=== PATIENT | female | born 1955 | race Caucasian/White ===

== ENCOUNTER 2018-03-30 10:08 | Inpatient (IN) | payer BC ==
[2018-03-30] MEDS ORDERED: ONDANSETRON 4 MG/2 ML VIAL IVP PRN (13:06)
[2018-03-30] MEDS ORDERED: MELATONIN 3 MG TABLET PO PRN (13:06)
[2018-03-30] MEDS ORDERED: NALOXONE 0.4 MG/ML 1 ML VIAL IV PRN (13:06)
[2018-03-30] MEDS ORDERED: ALBUTEROL NEBULIZED 2.5 MG/3 ML INHALATION PRN (13:11)
[2018-03-30] MEDS ORDERED: LACTATED RINGERS 1,000 ML IV SCH (13:15)
[2018-03-30 14:10] LABS: Basophils % (A) 0 %; Eosinophils % (A) 0 %; HCT 36.9 % (34.0-46.0); HGB 12.3 gm/dL (11.4-16.0); Lymphocytes # (A) 0.8 k/uL (1.0-4.8); Lymphocytes % (A) 3 %; MCH 31.3 pg (25.0-35.0); MCHC 33.5 g/dL (31.0-37.0); MCV 93.4 fL (80.0-100.0); Mean Platelet Volume 9.2; Monocytes # (A) 0.6 k/uL (0-1.0); Monocytes % (A) 3 %; Neutrophils # (A) 20.6 k/uL (1.3-7.7); Neutrophils % (A) 93 %; RBC 3.95 m/uL (3.80-5.40); RDW 13.5 % (11.5-15.5); WBC 22.1 k/uL (3.8-10.6)
[2018-03-30] MEDS: ACETAMINOPHEN TAB 325 MG TAB PO PRN ×2 (14:16→21:24)
[2018-03-30] MEDS: cefTRIAXone IN SWFI 1,000 MG/10 ML SYRINGE IVP SCH (14:17)
[2018-03-30] MEDS: BACLOFEN 10 MG TAB PO SCH ×3 (14:17→21:24)
[2018-03-30] MEDS: ENOXAPARIN 40 MG/0.4 ML SYRINGE SQ SCH (14:17)
[2018-03-30 14:19] LABS: Albumin 2.6 g/dL (3.5-5.0); Calcium 7.9 mg/dL (8.4-10.2); Phosphorus 5.2 mg/dL (2.5-4.5); Potassium 3.9 mmol/L (3.5-5.1); Total Bilirubin 0.8 mg/dL (0.2-1.3); Total Protein 5.1 g/dL (6.3-8.2)
[2018-03-30 14:30] LABS: Appearance,Urine Clear (Clear); Bacteria,Urine Rare /hpf; Bilirubin,Urine Negative (Negative); Blood,Urine Small (Negative); Color,Urine Light Yellow; Glucose,Urine (UA) Negative (Negative); Hyaline Casts,Urine 1 /lpf (0-2); Ketones,Urine Negative (Negative); Leukocyte Esterase,Urine Large (Negative); Mucus,Urine Rare /hpf; Nitrite,Urine Negative (Negative); Protein,Urine 1+ (Negative); RBC,Urine 10 /hpf (0-5); Specific Gravity,Urine 1.006 (1.001-1.035); Urobilinogen,Urine <2.0 mg/dL (<2.0); WBC,Urine 107 /hpf (0-5)
[2018-03-30 14:51] LABS: Platelet Count 79 k/uL (150-450); Poikilocytosis (M) Present; Polychromasia Present
[2018-03-30] MEDS ORDERED: SODIUM CHLORIDE 0.9% 1,000 ML IV SCH (17:15)
--- NOTE | 2018-03-30 19:10 | CONS ---
CONSULTATION REASON FOR CONSULT: Renal failure, hyponatremia. HISTORY OF PRESENT ILLNESS: Patient is a 62-year-old female with no significant past medical history except for back pain and hypertension, which patient has had for about 4 years. Her blood pressure has been fairly well controlled as outpatient. Patient had complained of urinary symptoms for about one week prior to admission. She thought she had a urinary tract infection and did increase her fluid intake. There is no previous history of hyponatremia or renal failure. A previous creatinine was noted to be 0.7 mg/dL on labs done as outpatient. Patient initially presented to [facility] with increased weakness. She was found to have a UA suggestive of urinary tract infection and serum creatinine was 4.4 mg/dL, sodium of 123. The patient was started on saline and she was transferred to [facility]. There is history of use of Motrin 800 mg t.i.d. almost on a daily basis for a few years now. Patient's blood pressure is also on the lower side. No history of recent IV contrast administration. PAST MEDICAL HISTORY: 1. Hypertension. 2. Chronic back pain. 3. Degenerative joint disease, particularly of the spine, maintained on baclofen. 4. Hypertension. PAST SURGICAL HISTORY: Back surgery. SOCIAL HISTORY: Negative for smoking, drug abuse or alcohol abuse. HOME MEDICATIONS: 1. Calcium. 2. Hyzaar. 3. Vitamin B complex. 4. Vitamin E. 5. Biotene. 6. Motrin. 7. Tylenol. 8. Albuterol. 9. Baclofen. ALLERGIES: NO KNOWN DRUG ALLERGIES. PHYSICAL EXAMINATION: Patient is sleepy but easily arousable. Blood pressure was 111/71, heart rate 90 per minute. She is afebrile. EXAMINATION OF THE HEART: S1, S2. EXAMINATION OF LUNGS: Bilateral breath sounds are heard. ABDOMEN: Soft, non-tender. Examination of lower extremities shows no evidence of edema. INTEGRATED MARKETING SPECIALIST exam is grossly intact. Patient is moving all 4 extremities. She is a bit sleepy, but easily arousable. LABS: Sodium 127, potassium 3.9, chloride 97. CO2 is 13, BUN 104, serum creatinine 4.3, calcium 7.9, phosphorus 5.2. Albumin is 2.6, hemoglobin 12.3 g/dL. UA shows 1+ protein, large leukocyte esterase, WBC 107. Urine osmolality was 254. ASSESSMENT: 1. Acute kidney injury secondary to non-steroidal anti-inflammatories and hypoperfusion as well as urinary tract infection. Serum creatinine has not changed much since yesterday with IV fluids, although patient is non-oliguric. We will continue with IV hydration and repeat labs in a.m. I will check an ultrasound of the kidneys as well. We will definitely hold off on the NSAIDs and the EDU inhibitors. Previous creatinine, as mentioned, was 0.7 mg/dL. 2. Hyponatremia, most likely hypovolemic, improved from 123 to 127. The patient did receive IV fluids at [facility]. We will continue with normal saline and repeat labs in a.m. Urine osmolality is not high. 3. Metabolic acidosis secondary to renal failure, anion gap. Will start patient on IV bicarb. I will switch the IV fluids from normal saline to half-normal saline with 3 amps of sodium bicarb. 4. Mild hyperphosphatemia associated with renal failure. 5. Urinary tract infection. We will maintain patient on Rocephin. PLAN: Switch IV fluids to IV bicarb. We will increase the sodium in the IV fluids and add 3 amps of sodium bicarb to half-normal saline. Check ultrasound of the kidneys. Continue antibiotics. Follow up on urine cultures and continue to hold off on NSAIDs and EDU inhibitors for now. Thank you for this consultation. We will continue to follow the patient with you during her hospitalization. MMODL / IJN: [id number] /
--- NOTE | 2018-03-30 19:43 | HP ---
HISTORY AND PHYSICAL DATE OF ADMISSION: 03/30/2018 PRESENTING COMPLAINT: Lethargic. HISTORY OF PRESENTING COMPLAINT: This is a very pleasant 62-year-old patient of Dr. Lara. Patient is the of Dr. Steve Grimaldo, a [facility]. Patient's chronic stable medical conditions include chronic back pain with prior surgery, hypertension and muscle spasms. For over a week the patient started having urinary symptoms with burning, and slowly then patient started losing her appetite, started to become weak and tired with decreased oral intake to the point that patient passed out 2 days ago after coming back from the bathroom. Patient was taken to [facility] yesterday, and there patient's BUN was found to be 93. Creatinine was 4.4. White count was 22.6 and sodium 123. Patient's CT scan of the brain was unremarkable and 2-D showed preserved LV function. Patient was transferred down here for further management. Patient continues to feel weak and tired, rundown. Currently no fever. REVIEW OF SYSTEMS: CONSTITUTIONAL: Weak, tired, rundown. Decreased appetite. HEENT: None. RESPIRATORY: None. CARDIOVASCULAR: None. GASTROINTESTINAL: None. GENITOURINARY: Dysuria. DERMATOLOGICAL: None. HEMATOLOGICAL: None. LYMPHATICS: None. PSYCHIATRY: As above. NEUROLOGICAL: No focal weakness. MUSCULOSKELETAL: Chronic neck and back pain. PAST MEDICAL HISTORY: 1. GI bleed. 2. Hypertension. 3. Osteoarthritis. 4. Chronic cervical and back pain. 5. Lower GI bleed. PAST SURGICAL HISTORY: 1. Breast surgery. 2. . 3. Tonsillectomy. 4. Bilateral breast implants. 5. Cervical and thoracic spinal surgery. 6. x2. SOCIAL HISTORY: No smoking. Alcohol rarely. Lives with her . FAMILY HISTORY: Father had mesothelioma. HOME MEDICATIONS: 1. Biotin 300 mcg a day. 2. Vitamin E 100 units p.o. daily. 3. Vitamin B complex 1 capsule p.o. daily. 4. Hyzaar 50/12.5 one tablet p.o. daily. 5. Calcium 600 mg p.o. daily. 6. Motrin 800 mg p.o. t.i.d. p.r.n. 7. Baclofen 20 mg p.o. t.i.d. 8. Tylenol 650 mg q.6 p.r.n. 9. ProAir 2 puffs q.6 p.r.n. ALLERGIES: NONE. PHYSICAL EXAMINATION: VITAL SIGNS ON PRESENTATION: Temperature 98.2, pulse 93, respiration 16, blood pressure 132/84, pulse ox 97% on room air. GENERAL APPEARANCE: Average build. Lying in bed, tired-appearing. EYES: Pupils equal. Conjunctivae normal. HEENT: External appearance of nose and ears normal. Oral cavity dry. NECK: JVD not raised. Mass not palpable. RESPIRATORY: Effort normal. LUNGS: Fair air entry. CARDIOVASCULAR: First and second sounds normal. No edema. ABDOMEN: Soft, nontender. Liver and spleen not palpable. LYMPHATIC: No lymph node palpable in neck or axillae. PSYCHIATRY: Alert and oriented x3. Tired-appearing. NEUROLOGICAL: Pupils equal. Cranial nerves grossly intact. Power and sensation grossly intact. INVESTIGATIONS: Blood work from [facility] showed BUN of 93, creatinine 4.4, sodium 123, potassium 3.3, white count 22.6, hemoglobin 11.2, platelets 103. Labs done here show white count 22.1, hemoglobin 12.3, platelets 79, sodium 127, potassium 3.9, BUN 104, creatinine 4.3, phosphorus 5.2, serum albumin 2.6. UA positive for leukocyte esterase, WBC. ASSESSMENT: 1. Acute severe urinary tract infection with possible sepsis. 2. Acute renal failure, severe, probably a combination of acute tubular necrosis, prerenal, given that patient is taking Hyzaar and Motrin at home and also decreased oral intake. 3. Acute metabolic acidosis from renal failure. 4. Hyponatremia, likely hypo-osmolar from decreased salt intake. 5. Hypoalbuminemia as an acute phase reactant. 6. Chronic osteoarthritis of the cervical spine and thoracic spine. PLAN: The patient will be given IV fluids. Renal function will be followed closely. Consultation to Nephrology was made. Strict and I&O will be done. Patient was started on IV fluids at 125 mL/hour. Will add some sodium bicarb. Patient's renal function labs from Dr. Lara's office from 2 weeks ago showed the BUN and creatinine to be normal. Patient was put on IV ceftriaxone. Dose of baclofen has been cut back to 10 mg 3 times a day and a K-pad will be given for back pain. Prognosis guarded. Did talk to the patient and especially her at length. MMODL / IJN: [id number] /
--- NOTE | 2018-03-30 21:15 | US ---
EXAMINATION TYPE: US renals and bladder DATE OF EXAM: 03/30/2018 COMPARISON: NONE CLINICAL HISTORY: renal failure. Renal failure EXAM MEASUREMENTS: Right Kidney: 10.0 x 6.1 x 6.0 cm Left Kidney: 13.4 x 6.1 x 6.2 cm Right Kidney: No hydronephrosis or masses seen Left Kidney: No hydronephrosis or masses seen Bladder: Anechoic Bilateral Jets seen: Yes There is no evidence for hydronephrosis at this point in time. No nephrolithiasis is seen. No yadiel s are identified. The urinary bladder is anechoic. Bilateral ureteral jets are seen. IMPRESSION: No evidence of renal mass or obstruction. The kidneys are large in this patient with a history of re nal failure. This could relate to acute nephritis.
[2018-03-30] MEDS: SODIUM CHLORIDE 0.45% 1,000 ML with SODIUM BICARB (1 MEQ/ML) 150 ML IV SCH ×2 (21:27)
[2018-03-31 07:45] LABS: Basophils % (A) 0 %; Eosinophils # (A) 0.1 k/uL (0-0.7); Eosinophils % (A) 0 %; HCT 35.8 % (34.0-46.0); HGB 11.9 gm/dL (11.4-16.0); Lymphocytes # (A) 1.2 k/uL (1.0-4.8); Lymphocytes % (A) 6 %; MCH 30.2 pg (25.0-35.0); MCHC 33.4 g/dL (31.0-37.0); MCV 90.4 fL (80.0-100.0); Mean Platelet Volume 9.3; Monocytes # (A) 0.4 k/uL (0-1.0); Monocytes % (A) 2 %; Neutrophils # (A) 19.6 k/uL (1.3-7.7); Neutrophils % (A) 91 %; RBC 3.96 m/uL (3.80-5.40); RDW 13.4 % (11.5-15.5); WBC 21.6 k/uL (3.8-10.6)
[2018-03-31 07:47] LABS: Platelet Count 71 k/uL (150-450)
[2018-03-31 07:53] LABS: Albumin 2.5 g/dL (3.5-5.0); Calcium 8.2 mg/dL (8.4-10.2); Potassium 3.3 mmol/L (3.5-5.1); Total Bilirubin 0.9 mg/dL (0.2-1.3); Total Protein 4.9 g/dL (6.3-8.2)
[2018-03-31] MEDS: ENOXAPARIN 40 MG/0.4 ML SYRINGE SQ SCH (08:47)
[2018-03-31] MEDS: cefTRIAXone IN SWFI 1,000 MG/10 ML SYRINGE IVP SCH (08:47)
[2018-03-31] MEDS: BACLOFEN 10 MG TAB PO SCH ×3 (08:48→21:17)
[2018-03-31] MEDS ORDERED: POTASSIUM CHLORIDE ER 20 MEQ TAB.ER PO STA (12:36)
[2018-03-31] MEDS: SODIUM CHLORIDE 0.45% 1,000 ML with SODIUM BICARB (1 MEQ/ML) 150 ML IV SCH ×2 (12:37)
[2018-03-31] MEDS: ACETAMINOPHEN TAB 325 MG TAB PO PRN ×2 (13:26→20:25)
--- NOTE | 2018-03-31 13:41 | PN ---
PROGRESS NOTE The patient is seen for followup for acute kidney injury, severe metabolic acidosis and hyponatremia. She was admitted with urinary tract infection. Overall, she states she is feeling slightly better, although according to her she was better last night as compared to this morning. The patient does not have much appetite, however, she denies any nausea, vomiting or abdominal pain. PHYSICAL EXAMINATION: On examination, blood pressure is 118/78, heart rate 80 per minute. She is afebrile. EXAMINATION OF THE HEART: S1, S2. EXAMINATION OF THE LUNGS: Decreased breath sounds at the bases. Minimal basal crackles are heard. Abdomen is soft, nontender. Examination of the lower extremities shows no significant edema. REAL ESTATE OFFICE SUPERVISOR exam shows patient is moving all 4 extremities. LABS: Sodium 127, potassium 3.3, CO2 is 18, BUN 110, serum creatinine 4.5. Albumin 2.5. Calcium 8.2. Hemoglobin was 11.9 g/dL. ASSESSMENT: 1. Acute kidney injury secondary to NSAID, urinary tract infection and hypovolemia, currently maintained on IV fluids which I will continue. There are no nephrotoxic agents on board. The patient has good urine output. We will continue to monitor her output as well. If her mentation declines or if the renal function worsens, she may need temporary hemodialysis. This was discussed with her . However, at this time, I feel we do not need any renal replacement therapy. 2. Hypokalemia secondary to IV bicarb, will replace. 3. Metabolic acidosis, anion gap secondary to renal failure, maintained on IV bicarb, which I will continue and add oral sodium bicarbonate. 4. Hyponatremia secondary to renal failure, initially hypovolemic as well. Currently being replaced with IV fluids, which is slightly and I will continue with the current combination of half-normal saline with 150 mEq of sodium bicarb. 5. Urinary tract infection. Urine culture is not back yet. The patient had already received antibiotics when her culture was amadou. We will continue with the Rocephin for now. 6. Mild hyperphosphatemia associated with renal failure. PLAN: Replace potassium. Continue with IV bicarb. Add oral sodium bicarb. Repeat labs in a.m. Check chest x-ray. Possibility for need for renal replacement therapy has been discussed with the patient and her . At this time, I do not believe the patient needs any dialysis. We will continue to reassess on a daily basis. MMODL / IJN: [id number] /
[2018-03-31] MEDS: SODIUM BICARBONATE TAB 650 MG TAB PO SCH ×2 (14:38→21:17)
--- NOTE | 2018-03-31 15:42 | XR ---
EXAMINATION TYPE: XR chest 1V DATE OF EXAM: 03/31/2018 COMPARISON: NONE INDICATION: CHF TECHNIQUE: Single frontal view of the chest is obtained. FINDINGS: The heart size is normal. The pulmonary vasculature is normal. Small amount of pleural fluid may be present at the left costophrenic angle. There is blunting left c ostophrenic angle. No suspicious infiltrates are evident. Bilateral breast prostheses are evident. Postsurgical changes are within the cervical spine. IMPRESSION: 1. Small left pleural effusion and/or atelectasis.
--- NOTE | 2018-03-31 16:05 | PN ---
PROGRESS NOTE DATE OF SERVICE: 03/31/2018 PRESENTING COMPLAINT: Tired. INTERVAL HISTORY: This patient presented with acute renal failure, acute UTI, tired. Patient has got chronic back pain. Making some urine. Has got some oral intake. Dr. Grimaldo at the bedside. REVIEW OF SYSTEMS: Done for constitutional, cardiovascular, GI, pulmonary, musculoskeletal; relevant findings as above. CURRENT MEDICATIONS: Reviewed. They include: 1. Baclofen 10 mg 3 times a day. 2. IV ceftriaxone. 3. IV fluids. 4. Bicarbonate. PHYSICAL EXAMINATION: Temperature 97.6, pulse 80, respiration 18, blood pressure 118/78, pulse ox 95% on room air. GENERAL APPEARANCE: Sitting up in bed, awake, tired-appearing. EYES: Pupils equal. Conjunctivae normal. HEENT: External appearance of nose and ears normal. Oral cavity normal. NECK: JVD not raised. Mass not palpable. RESPIRATORY: Effort normal. Lungs are clear. CARDIOVASCULAR: First and second sounds normal. Mild edema. ABDOMEN: Soft, nontender. Liver and spleen not palpable. PSYCHIATRY: Awake. Able to answer simple questions. INVESTIGATIONS: White count 21.6, hemoglobin 11.9, platelets 71. Potassium 3.3, sodium 127, bicarb 14, BUN 110, creatinine 4.5, calcium 8.2, albumin 2.5. Urine culture pending. ASSESSMENT: 1. Acute severe urinary tract infection with possible sepsis, present on admission. Cultures are pending. 2. Acute renal failure, severe, probably a combination of acute tubular necrosis and prerenal. Patient had been on Hyzaar and Motrin. Slow to respond. 3. Acute metabolic acidosis from renal failure. 4. Hyponatremia, likely hypo-osmolar, from decreased salt intake. 5. Hypoalbuminemia as an acute phase reactant. 6. Chronic osteoarthritis of the cervical spine and thoracic spine. PLAN: Patient is slow to respond. Do expect her to respond. Patient's renal functions 2 weeks ago were normal. Care was discussed with her at the bedside. I spoke to Dr. Mason. If patient does not fare too well, then hemodialysis may be the next step. Continue with antibiotics, IV fluids, bicarbonate. Follow closely. MMODL / IJN: [id number] /
[2018-04-01] MEDS: SODIUM CHLORIDE 0.45% 1,000 ML with SODIUM BICARB (1 MEQ/ML) 150 ML IV SCH ×4 (05:37→21:51)
[2018-04-01] MEDS: cefTRIAXone IN SWFI 1,000 MG/10 ML SYRINGE IVP SCH (08:06)
[2018-04-01] MEDS: BACLOFEN 10 MG TAB PO SCH ×3 (08:09→21:40)
[2018-04-01] MEDS: SODIUM BICARBONATE TAB 650 MG TAB PO SCH ×2 (08:09→21:40)
[2018-04-01] MEDS: ACETAMINOPHEN TAB 325 MG TAB PO PRN (08:18)
[2018-04-01] MEDS: ENOXAPARIN 30 MG/0.3 ML SYRINGE SQ SCH (10:12)
--- NOTE | 2018-04-01 11:57 | PN ---
PROGRESS NOTE Patient is seen for followup for acute kidney injury. This morning she states she was confused and hallucinating last night. Patient remains on IV fluids. I do not have any labs from this morning. PHYSICAL EXAMINATION: Blood pressure is 117/73, heart rate 77 per minute. Last night examination of the heart S1, S2. Examination of the lungs, bilateral breath sounds are heard. Abdomen is soft, nontender. Examination of the lower extremities shows trace edema bilaterally. MULTIFOCAL BUTTON GENERATOR exam is grossly intact. Patient moving all 4 extremities. She is currently not confused. Labs are pending. ASSESSMENT: 1. Acute kidney injury secondary, secondary to NSAIDs and urinary tract infection, currently nonoliguric. Maintained on IV fluids. Patient does have some confusion and hallucinations. If her renal function is not improved today, I will proceed with renal replacement therapy. 2. Urinary tract infection, maintained on Rocephin. Urine culture did not grow any organisms. However, patient had already been on antibiotics before this urine specimen collection. 3. Metabolic acidosis. Maintained on IV bicarb. Etiology is renal failure. 4. Hypokalemia secondary to IV bicarb, decreased intake, currently status post supplementation from yesterday. Labs are pending today. 5. Hyponatremia, most likely hypovolemic and secondary to renal failure. Await repeat labs from today. PLAN: Check labs. Continue IV fluids. If renal function is not significantly improved, I will proceed with dialysis given the hallucination and confusion. Check a random urine for eosinophils as well. MMODL / IJN: [id number] /
[2018-04-01 12:12] LABS: Potassium 3.3 mmol/L (3.5-5.1)
[2018-04-01] MEDS ORDERED: FUROSEMIDE 10 MG/ML 4 ML VIAL IV STA (13:03)
[2018-04-01] MEDS ORDERED: POTASSIUM CHLORIDE ER 20 MEQ TAB.ER PO STA (13:03)
--- NOTE | 2018-04-01 22:21 | PN ---
PROGRESS NOTE DATE OF SERVICE: April 01, 2018. PRESENT COMPLAINT: Tired. INTERVAL HISTORY: Patient presents with acute renal failure and UTI. Cultures from [facility] have come back showing E coli in the urine. The patient feels a bit better. A little bit puffy from the fluids. Tolerating some diet. REVIEW OF SYSTEMS: Done for constitutional, cardiovascular, GI, pulmonary, musculoskeletal; relevant findings as above. CURRENT MEDICATIONS: Reviewed that include IV ceftriaxone, sodium bicarb, normal saline. PHYSICAL EXAMINATION: Temperature 97.5. Pulse 77, respiratory 18, blood pressure 140/81, pulse ox 96% on room air. GENERAL APPEARANCE: Sitting up in bed, awake, more perky. EYES: Pupils are equal. Conjunctivae normal. HEENT external appearance of nose and ears normal. Oral cavity normal. Neck JVD not raised. Mass not palpable. Respiratory effort, LUNGS: Clear. Cardiovascular 1st and 2nd sounds normal. Mild edema. ABDOMEN: Soft and nontender. Liver and spleen not palpable. Psychiatry: Alert, oriented x3. Mood and affect normal. INVESTIGATIONS: Sodium 124, potassium 3.3, BUN 110, creatinine 4.02. Urine culture from Agency is growing E coli. ASSESSMENT: 1. Acute severe urinary tract infection, possible sepsis on admission with cultures growing E coli from [facility]. 2. Acute renal failure, combination of acute tubular necrosis and prerenal, slow to respond. 3. Acute metabolic acidosis from renal failure. 4. Hyponatremia, likely hypoosmolar. 5. Hypoalbuminemia as an acute phase reactant. 6. Chronic osteoarthritis of the cervical spine and thoracic spine. 7. Thrombocytopenia, likely from infection. 8. Metabolic acidosis from renal failure slowly improving. PLAN: Continue current medication and treatment plan. Will add some salt tablets. Switch the patient over to Keflex for antibiotic. Follow. MMODL / IJN: [id number] /
[2018-04-01] MEDS: SODIUM CHLORIDE TAB 1 GM TAB PO SCH (23:33)
[2018-04-02 06:51] LABS: Albumin 2.6 g/dL (3.5-5.0); Calcium 8.3 mg/dL (8.4-10.2); Potassium 3.7 mmol/L (3.5-5.1)
[2018-04-02 07:13] LABS: Basophils % (A) 0 %; Eosinophils # (A) 0.1 k/uL (0-0.7); Eosinophils % (A) 0 %; HCT 33.2 % (34.0-46.0); HGB 11.4 gm/dL (11.4-16.0); Lymphocytes # (A) 1.1 k/uL (1.0-4.8); Lymphocytes % (A) 5 %; MCHC 34.2 g/dL (31.0-37.0); MCV 87.8 fL (80.0-100.0); Mean Platelet Volume 8.8; Monocytes # (A) 0.7 k/uL (0-1.0); Monocytes % (A) 4 %; Neutrophils # (A) 18.2 k/uL (1.3-7.7); Neutrophils % (A) 89 %; RBC 3.78 m/uL (3.80-5.40); RDW 13.3 % (11.5-15.5); WBC 20.4 k/uL (3.8-10.6)
[2018-04-02 07:15] LABS: Platelet Count 150 k/uL (150-450)
[2018-04-02] MEDS: BACLOFEN 10 MG TAB PO SCH ×3 (07:35→21:05)
[2018-04-02] MEDS: ENOXAPARIN 30 MG/0.3 ML SYRINGE SQ SCH (07:35)
[2018-04-02] MEDS: SODIUM BICARBONATE TAB 650 MG TAB PO SCH ×2 (07:36→21:04)
[2018-04-02] MEDS: SODIUM CHLORIDE TAB 1 GM TAB PO SCH ×3 (07:36→21:04)
[2018-04-02] MEDS: ACETAMINOPHEN TAB 325 MG TAB PO PRN ×2 (07:39→19:18)
[2018-04-02] MEDS ORDERED: CEPHALEXIN 500 MG CAP PO SCH (09:00)
[2018-04-02] MEDS: ALPRAZolam 0.25 MG TAB PO PRN ×3 (11:17→23:26)
[2018-04-02] MEDS ORDERED: FUROSEMIDE 10 MG/ML 4 ML VIAL IV STA (11:58)
--- NOTE | 2018-04-02 11:59 | P.PN ---
Subjective Patient is seen in follow for acute kidney injury. Creatinine peaked at 4.5 on March 31 and has been gradually improving and is down to 3.57 today. Sodium level is also up to 127. Patient's currently sitting up in chair. Oral intake is fair. She has been waiting. Admits to edema in her legs. She has gained quite a bit overweight. No vomiting or diarrhea. Vital signs are stable. General: The patient appeared well nourished and normally developed. HEENT: Head exam is unremarkable. Neck is without jugular venous distension. LUNGS: Lungs are clear to auscultation and percussion. Breath sounds decreased. HEART: Rate and Rhythm are regular. First and second heart sounds normal. No murmurs, rubs or gallops. ABDOMEN: Abdominal exam reveals normal bowel sounds. Non-tender and non- distended. No evidence of peritonitis. EXTREMITITES: 1+ edema. Objective - Vital Signs Vital signs: Vital Signs Temp 98.7 F 04/02/18 03:54 Pulse 83 04/02/18 08:00 Resp 18 04/02/18 08:00 BP 151/86 04/02/18 03:54 Pulse Ox 98 04/02/18 03:54 Intake & Output 04/01/18 04/02/18 04/02/18 18:59 06:59 18:59 Intake Total 600 Output Total 1150 2500 Balance -550 -2500 Weight 58.5 kg 65 kg 65 kg Intake: IV 600 Sodium Chloride 0.45% 1, 600 000 ml @ 75 mls/hr IV . [id number] REVA with Sodium Bicarb (1 Meq/ml) 150 ml Rx#:[id number] Output: Urine 1150 2500 Other: Voiding Method Toilet Toilet Toilet # Voids 1 - Labs CBC & Chem 7: 04/02/18 06:26 04/02/18 06:26 Labs: Abnormal Lab Results - Last 24 Hours (Table) 04/01/18 04/02/18 04/02/18 Range/Units 11:49 06:26 06:26 WBC 20.4 H (3.8-10.6) k/uL RBC 3.78 L (3.80-5.40) m/uL Hct 33.2 L (34.0-46.0) % Neutrophils # 18.2 H (1.3-7.7) k/uL Sodium 124 L 127 L (137-145) mmol/L Potassium 3.3 L (3.5-5.1) mmol/L Chloride 88 L 87 L (98-107) mmol/L Carbon Dioxide 21 L (22-30) mmol/L BUN 110 H* 106 H* (7-17) mg/dL Creatinine 4.02 H 3.57 H (0.52-1.04) mg/dL Glucose 109 H 102 H (74-99) mg/dL Calcium 8.0 L 8.3 L (8.4-10.2) mg/dL AST 47 H (14-36) U/L ALT 54 H (9-52) U/L Alkaline Phosphatase 201 H (38-126) U/L Total Protein 5.0 L (6.3-8.2) g/dL Albumin 2.6 L (3.5-5.0) g/dL Assessment and Plan Plan: Assessment: 1. Nonoliguric acute kidney injury secondary to ATN secondary to nonsteroidals and urinary tract infection. Creatinine peaked at 4.5 this admission and is down to 3.57 today. 2. UTI maintained on IV antibiotics. 3. Metabolic acidosis secondary to acute kidney injury. Currently on bicarb drip. Resolved. 4. Hypokalemia secondary to transcellular shift from IV bicarbonate and decreased by mouth intake. Improved posterior placement. 5. Hypovolemic hyponatremia improved with IV hydration. However now the patient appears hypervolemic. Plan: Discontinue bicarbonate drip. Start normal saline at 50 mL an hour for maintenance fluids for now. Lasix 40 mg IV once today. Encouraged oral intake. Repeat electrolytes in the morning. No need for renal replacement therapy at this time.
[2018-04-02] MEDS: SODIUM CHLORIDE 0.45% 1,000 ML with SODIUM BICARB (1 MEQ/ML) 150 ML IV SCH ×2 (12:12)
[2018-04-02] MEDS: SODIUM CHLORIDE 0.9% 1,000 ML IV SCH (12:15)
[2018-04-02] MEDS: CEPHALEXIN 250 MG CAP PO SCH ×2 (17:31→21:05)
--- NOTE | 2018-04-02 22:04 | PN ---
PROGRESS NOTE DATE OF SERVICE: April 02, 2018. PRESENTING COMPLAINT: Tired. INTERVAL HISTORY: Patient presents with acute renal failure, UTI from E coli. The patient has got some edema. The patient did walk up to the lounge. Oral intake is still a bit low. Breathing is stable. REVIEW OF SYSTEMS: Done for constitutional, cardiovascular, GI, pulmonary; relevant findings as above. CURRENT MEDICATIONS: Reviewed and include baclofen, oral Keflex, bicarb has been switched to p.o. Insulin has been dropped. Saline has been dropped down to a to 50 mL an hour. PHYSICAL EXAMINATION: Temperature 97.9, pulse 75, respiratory 18, blood pressure 110/74, pulse ox 97% on room air. General appearance: Sitting up in a chair, awake tired-appearing. Eyes pupils are equal. Conjunctivae normal. HEENT external appearance of nose and ears normal. Oral cavity normal. Neck JVD not raised. Mass not palpable. Respiratory effort normal. Lungs fair entry. Cardiovascular 1st and 2nd sounds normal. Edema present. ABDOMEN: Soft nontender. Liver and spleen not palpable. Psychiatry: Alert and oriented times three. Mood and affect normal. INVESTIGATIONS: White count 20.4, hemoglobin 11.4, sodium 127, potassium 3.7, chloride 87, BUN 106, creatinine 3.57, calcium 8.3, albumin 2.6, serum osmolality is 300. ASSESSMENT: 1. Acute severe urinary tract infection with sepsis present on admission with cultures growing E coli. 2. Nonoliguric acute renal failure, severe, combination of acute tubular necrosis, possibly prerenal, slow to respond. 3. Acute metabolic acidosis from renal failure improving. 4. Hyponatremia initially hypoosmolar now patient is normal osmolar. 5. Hypoalbuminemia as an acute phase reactant. 6. Chronic osteoarthritis of the cervical spine and thoracic spine. 7. Thrombocytopenia likely from infection, now improved. 8. Metabolic acidosis from renal failure improving. PLAN: Patient's IV fluids have been decreased to 50, bicarb is switched to p.o. Osmolality is coming back at normal. Will DC the sodium tablets. In the morning we will check patient's sodium, the urine sodium, urine chloride, and also do a blood gases to assess more closely the acid-base status of the patient and manage fluids accordingly. If the patient third-spacing and that could be a contribution from a significant hypoalbuminemia. MMODL / IJN: [id number] /
[2018-04-03 06:33] LABS: Calcium 8.3 mg/dL (8.4-10.2); Magnesium 1.7 mg/dL (1.6-2.3); Potassium 3.3 mmol/L (3.5-5.1)
[2018-04-03] MEDS: ALPRAZolam 0.25 MG TAB PO PRN ×3 (07:12→22:08)
[2018-04-03 07:52] LABS: ABG HCO3 31 mmol/L (21-25); ABG PCO2 41 mmHg (35-45); ABG PH 7.48 (7.35-7.45); ABG PO2 68 mmHg (83-108); ABG TCO2 32 mmol/L (19-24)
[2018-04-03 07:53] LABS: ABG Base Excess 7.4 mmol/L
[2018-04-03] MEDS: SODIUM BICARBONATE TAB 650 MG TAB PO SCH (08:12)
[2018-04-03] MEDS: BACLOFEN 10 MG TAB PO SCH ×3 (08:12→22:04)
[2018-04-03] MEDS: ENOXAPARIN 30 MG/0.3 ML SYRINGE SQ SCH (08:12)
[2018-04-03] MEDS: CEPHALEXIN 250 MG CAP PO SCH ×3 (08:12→22:04)
[2018-04-03] MEDS: SODIUM CHLORIDE TAB 1 GM TAB PO SCH (08:12)
[2018-04-03] MEDS: SODIUM CHLORIDE 0.9% 1,000 ML IV SCH ×2 (08:20→12:04)
[2018-04-03] MEDS ORDERED: POTASSIUM CHLORIDE ER 20 MEQ TAB.ER PO STA (09:52)
[2018-04-03] MEDS ORDERED: MAGNESIUM SULFATE-D5W PMX 1 GM in DEXTROSE/WATER 1 100ML.BAG IVPB ONE (10:46)
[2018-04-03] MEDS ORDERED: FUROSEMIDE 10 MG/ML 4 ML VIAL IV STA (10:47)
--- NOTE | 2018-04-03 11:11 | P.PN ---
Subjective Patient is seen in follow for acute kidney injury. Creatinine peaked at 4.5 on March 31 and has been gradually improving and is down to 3.02 today. Sodium level is also up to 130. Patient's currently sitting up in chair. Oral intake is fair. She has been voiding. Admits to edema in her legs - improved after lasix given yesterday. No vomiting or diarrhea. Vital signs are stable. General: The patient appeared well nourished and normally developed. HEENT: Head exam is unremarkable. Neck is without jugular venous distension. LUNGS: Lungs are clear to auscultation and percussion. Breath sounds decreased. HEART: Rate and Rhythm are regular. First and second heart sounds normal. No murmurs, rubs or gallops. ABDOMEN: Abdominal exam reveals normal bowel sounds. Non-tender and non- distended. No evidence of peritonitis. EXTREMITITES: 1+ edema. Objective - Vital Signs Vital signs: Vital Signs Temp 98.3 F 04/03/18 06:39 Pulse 80 04/03/18 08:00 Resp 16 04/03/18 08:00 BP 136/81 04/03/18 06:39 Pulse Ox 98 04/03/18 06:39 Intake & Output 04/02/18 04/03/18 04/03/18 18:59 06:59 18:59 Intake Total 737 575 Output Total 525 2000 1000 Balance 212 -1425 -1000 Weight 65 kg 65.5 kg Intake: Intake, IV Titration 500 575 Amount Sodium Chloride 0.45% 1, 300 000 ml @ 75 mls/hr IV . [id number] REVA with Sodium Bicarb (1 Meq/ml) 150 ml Rx#:[id number] Sodium Chloride 0.9% 1, 200 575 000 ml @ 50 mls/hr IV . Q20H REVA Rx#:[id number] Oral 237 Output: Urine 525 2000 1000 Other: Voiding Method Toilet Toilet Toilet # Voids 2 - Labs CBC & Chem 7: 04/02/18 06:26 04/03/18 06:02 Labs: Abnormal Lab Results - Last 24 Hours (Table) 04/03/18 04/03/18 Range/Units 06:02 07:47 ABG pH 7.48 H (7.35-7.45) ABG pO2 68 L (83-108) mmHg ABG HCO3 31 H (21-25) mmol/L ABG Total CO2 32 H (19-24) mmol/L Sodium 130 L (137-145) mmol/L Potassium 3.3 L (3.5-5.1) mmol/L Chloride 87 L (98-107) mmol/L BUN 101 H* (7-17) mg/dL Creatinine 3.02 H (0.52-1.04) mg/dL Glucose 139 H (74-99) mg/dL Calcium 8.3 L (8.4-10.2) mg/dL Assessment and Plan Plan: Assessment: 1. Nonoliguric acute kidney injury secondary to ATN secondary to nonsteroidals and urinary tract infection. Creatinine peaked at 4.5 this admission and is down to 3.02 today. 2. UTI maintained on IV antibiotics. 3. Metabolic acidosis secondary to acute kidney injury. s/p bicarb drip. Resolved. 4. Hypokalemia secondary to diuresis. 5. Hypovolemic hyponatremia improved with IV hydration. However now the patient is hypervolemic. Plan: Hep-Lock IV fluids. Lasix 40 mg IV once again today. Replace potassium. 60 mEq today. Replace magnesium. 1 g IV today. Discontinue sodium chloride tablets. Discontinue sodium bicarbonate supplementation. Encouraged oral intake. Repeat electrolytes in the morning. No need for renal replacement therapy at this time.
[2018-04-03] MEDS ORDERED: POTASSIUM CHLORIDE ER 20 MEQ TAB.ER PO ONE (12:00)
[2018-04-03] MEDS: ACETAMINOPHEN TAB 325 MG TAB PO PRN (19:17)
--- NOTE | 2018-04-03 22:29 | PN ---
PROGRESS NOTE DATE OF SERVICE: 04/03/2018. PRESENTING COMPLAINT: Edema. INTERVAL HISTORY: Patient presented with acute renal failure and UTI from E coli. Has some edema. Feeling better. Has been up to the bathroom. Did walk out. Oral intake is getting better. REVIEW OF SYSTEMS: Done for constitutional, cardiovascular, GI, pulmonary; relevant findings as above. Edema is present. CURRENT MEDICATIONS: Reviewed that include baclofen 10 mg three times a day, Keflex 250 two times a day, sodium tablets have been discontinued, bicarb has been discontinued. PHYSICAL EXAMINATION: Temperature 98.3, pulse 80, respirations 16, blood pressure 132/81, pulse ox 98% on room air. GENERAL APPEARANCE: Sitting up in a chair, tired. EYES: Pupils equal. Conjunctivae normal. HEENT: External nose and ears normal. Oral cavity normal. NECK: JVD not raised. Mass not palpable. Respiratory effort normal. LUNGS: Clear. CARDIOVASCULAR: 1st and 2nd sounds are normal. Edema present. ABDOMEN: Soft. Liver and spleen not palpable. PSYCHIATRY: Alert and oriented x3. Mood and affect normal. INVESTIGATIONS: Blood gases noted. Sodium 130, potassium 3.3, BUN 101, creatinine 3.02. Urine osmolality is 221. Urine sodium is 51. ASSESSMENT: 1. Acute severe urinary tract infection with sepsis present on admission with cultures growing E coli. Now doing better. 2. Nonoliguric acute renal failure, combination of acute tubular necrosis and prerenal, slowly improving. 3. Acute metabolic acidosis from renal failure on admission, resolved. 4. Hyponatremia. Initially hypoosmolar, now normal osmolar. 5. Hypoalbuminemia as an acute phase reactant. 6. 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 7. Thrombocytopenia likely from infection. 8. Metabolic alkalosis, possibly from volume contraction. Discussed with Dr. Galvez. At this point he has discontinued his IV fluids. He did give a dose of IV Lasix. Did speak at length with the patient and the . Will follow. MMODL / IJN: [id number] /
[2018-04-04] MEDS: ALPRAZolam 0.25 MG TAB PO PRN ×3 (04:03→21:27)
[2018-04-04 08:02] LABS: Calcium 8.4 mg/dL (8.4-10.2); Magnesium 1.8 mg/dL (1.6-2.3); Potassium 4.2 mmol/L (3.5-5.1)
[2018-04-04] MEDS: BACLOFEN 10 MG TAB PO SCH ×3 (08:22→21:27)
[2018-04-04] MEDS: ACETAMINOPHEN TAB 325 MG TAB PO PRN ×2 (08:22→21:27)
[2018-04-04] MEDS: CEPHALEXIN 250 MG CAP PO SCH ×3 (08:22→21:27)
[2018-04-04] MEDS: ENOXAPARIN 30 MG/0.3 ML SYRINGE SQ SCH (08:23)
[2018-04-04] MEDS: SODIUM CHLORIDE 0.9% 1,000 ML IV SCH (13:23)
--- NOTE | 2018-04-04 21:27 | PN ---
PROGRESS NOTE Patient is seen for followup for acute kidney injury. She is currently off of IV fluids. Renal function is improved. Serum creatinine is down to 2.1 mg/dL. Overall, patient states she is feeling better. Sodium is up to 132. She has been voiding. PHYSICAL EXAMINATION: Blood pressure is 144/66, heart rate 84 per minute. Patient is afebrile. Examination of the heart S1, S2. Examination lungs bilateral breath sounds are heard. Abdomen is soft, nontender. Examination lower extremity shows edema 1+ bilaterally. STONECUTTER HAND exam is grossly intact. Patient moving all 4 extremities. LAB: Show sodium 132, potassium 4.2, chloride 92, BUN 90, serum creatinine 2.17, magnesium 1.8. ASSESSMENT: 1. Acute kidney injury secondary to NSAIDs and urinary tract infection, currently nonoliguric and improving. Continue off of IV fluids. Patient can likely be discharged tomorrow. 2. Hyponatremia secondary to renal failure and hypovolemia on initial admission, currently improved. Patient received one dose of Lasix. We will repeat another dose of IV Lasix in a.m. continue off of IV fluids. 3. Urinary tract infection. Urine culture did not grow any bacteria. However, this urine was obtained after she had already received antibiotics. 4. Volume overload status post IV Lasix. We will repeat another dose in a.m. and her volume status should improve on her own as the renal function continues to improve. Continue to maintain patient off of sodium chloride tabs. MMODL / IJN: [id number] /
--- NOTE | 2018-04-04 23:27 | PN ---
PROGRESS NOTE DATE OF SERVICE: 04/04/2018 PRESENTING COMPLAINT: Edema. INTERVAL HISTORY: This patient presented with acute renal failure, UTI from E. coli. Continues to improve. Renal function is getting better. Edema still present. Get some more Lasix. Oral intake is getting better. Has been out of bed. REVIEW OF SYSTEMS: Done for constitutional, cardiovascular, GI, pulmonary and findings as above. CURRENT MEDICATIONS: Reviewed that include baclofen and Keflex. PHYSICAL EXAMINATION: Temperature 98.6, pulse 98, respirations 16, blood pressure 130/8, pulse ox 97% room air. GENERAL APPEARANCE: Sitting up, propped up, more awake. EYES: Pupils equal. Conjunctivae normal. HEENT: External nose and ears normal. Oral cavity normal. NECK: JVD not raised. Mass not palpable. Respiratory effort normal. LUNGS: Fair air entry. CARDIOVASCULAR: 1st and 2nd sounds are normal. Edema present. ABDOMEN: Soft, nontender. Liver and spleen not palpable. PSYCHIATRY: Alert and oriented x3. Mood and affect normal. INVESTIGATIONS: Sodium 132, potassium 4.2, BUN 90, creatinine 2.17, bicarb is 30. ASSESSMENT: 1. Acute severe severe urinary tract infection with sepsis present on admission with cultures growing E. coli. 2. Nonoliguric acute renal failure, combination of acute tubular necrosis and prerenal, improving. 3. Acute metabolic acidosis, renal failure on admission resolved. 4. Hyponatremia, initially hypoosmolar. 5. Hypoalbuminemia as an acute phase reactant. 6. 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 7. Thrombocytopenia likely from infection, improved. 8. Metabolic alkalosis, probably from volume contraction. PLAN: Patient continues to get better. Did receive a bit more Lasix today. We will see how the patient's renal function does tomorrow and go from there. MMODL / IJN: [id number] /
[2018-04-05] MEDS: ACETAMINOPHEN TAB 325 MG TAB PO PRN ×3 (04:00→19:32)
[2018-04-05 07:23] LABS: Calcium 8.6 mg/dL (8.4-10.2); Potassium 4.1 mmol/L (3.5-5.1)
[2018-04-05] MEDS: BACLOFEN 10 MG TAB PO SCH ×3 (08:20→21:22)
[2018-04-05] MEDS: ENOXAPARIN 30 MG/0.3 ML SYRINGE SQ SCH (08:20)
[2018-04-05] MEDS: CEPHALEXIN 250 MG CAP PO SCH ×2 (08:20→16:24)
[2018-04-05] MEDS: ALPRAZolam 0.25 MG TAB PO PRN ×3 (08:22→21:22)
[2018-04-05] MEDS ORDERED: FUROSEMIDE 10 MG/ML 4 ML VIAL IV STA (13:01)
[2018-04-05 15:18] VITALS: BMI 24.7
--- NOTE | 2018-04-05 15:43 | XR ---
EXAMINATION TYPE: XR chest 2V DATE OF EXAM: 04/05/2018 COMPARISON: 03/31/2018 HISTORY: 62-year-old female febrile TECHNIQUE: Frontal and lateral views FINDINGS: Bilateral calcified breast implants. Heart upper limits of normal in size. Mild elongation thoracic a michelle. Trace effusions are present with some patchy bibasilar opacity. ACDF hardware and posterior cer vical fusion hardware. Mild hyperinflation. IMPRESSION: Possible underlying COPD. There are small effusions with adjacent atelectasis and/or consolidation se en on the lateral view. Bilateral calcified breast implants.
[2018-04-05 15:57] LABS: Appearance,Urine Clear (Clear); Bilirubin,Urine Negative (Negative); Blood,Urine Negative (Negative); Color,Urine Colorless; Glucose,Urine (UA) Negative (Negative); Ketones,Urine Negative (Negative); Leukocyte Esterase,Urine Negative (Negative); Nitrite,Urine Negative (Negative); Protein,Urine Negative (Negative); Specific Gravity,Urine 1.004 (1.001-1.035); Urobilinogen,Urine <2.0 mg/dL (<2.0)
[2018-04-05] MEDS: SODIUM CHLORIDE 0.9% 1,000 ML IV SCH (16:25)
--- NOTE | 2018-04-05 16:28 | PN ---
PROGRESS NOTE Patient is seen for followup for acute kidney injury. She currently feels well. She has been voiding well. No complaints of shortness of breath. On examination, blood pressure this morning was 119/70, heart rate of 79 per minute. Patient is afebrile. EXAMINATION OF THE HEART: S1, S2. EXAMINATION OF LUNGS: Bilateral breath sounds are heard. ABDOMEN: Soft, non-tender. Examination of lower extremities shows 1+ edema bilaterally. DRAFTER TOPOGRAPHICAL exam is grossly intact. Labs show sodium 136, potassium 4.1, BUN 68, serum creatinine 1.89, calcium 8.6, magnesium 1.8. ASSESSMENT: 1. Acute kidney injury secondary to non-steroidal anti-inflammatories and and urinary tract infection, currently continuing to improve, status post IV fluids. 2. Mild volume overload, status post Lasix. I will repeat another dose of IV Lasix today before patient is discharged. She does not need to continue with oral diuretics as outpatient. 3. Hyponatremia secondary to renal failure, now improved. Sodium is up to 136. 4. Hypokalemia, status post replacement. 5. Hypertension. Blood pressure remains on the lower side. Continue to maintain patient off of EDU inhibitors. PLAN: Patient can be discharged today. We will give her Lasix x1 IV prior to discharge. Continue to hold off on EDU inhibitors and follow up as outpatient in one week with repeat labs to be done in one week's time. MMAPRILL / VIJAYN: [id number] /
[2018-04-05] MEDS: CIPROFLOXACIN HCL 250 MG TAB PO SCH (21:22)
--- NOTE | 2018-04-05 21:31 | P.CONS ---
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 She relates that she started to have urinary symptoms with frequency and dysuria and generalized malaise. She is a known history of degenerative joint disease of her spine has had extensive surgeries to her neck and takes ibuprofen 800 mg 3-4 times per day. Does has a known history of hypertension and is on Hyzaar at home. The patient continued to feel worse over the following days with fevers and chills and generalized weakness. She apparently was having increasing difficulties with eating this becoming more dehydrated and had a syncopal event after returning from the bathroom. She was brought to the local emergency center [facility] and has evidence of acute renal failure was transferred to our facility for nephrology evaluation. The patient was started to have some improvement for the treatment of her sepsis and the urinary system as well as acute renal failure when she again was febrile and with at the infectious diseases consultation was requested. The patient relates over the last couple days although she's been under therapy she still been having some chills. She is feeling better was able to eat the majority of her dinner this evening. It appears and she's been hydrated and improve renal function that she 's had some improvement. She is somewhat anxious about the fact not be able to take ibuprofen which is been her primary medication that she takes for her significant arthritis. Review of Systems HEENT:Denies headache or acute visual change. Denies sinus or mouth discomforts. Denies neck stiffness or pain. Denies significant oral cavity pain. Denies difficulty on swallowing. Lungs: Denies significant shortness of breath, cough, sputum production, or hemoptysis. Cardiovascular: Denies significant shortness of breath, chest pain, chest wall pain, orthopnea, dyspnea on exertion, syncope Gastrointestinal: The lack of appetite with nausea has resolved. Denies hematemesis melena or hematochezia Musculoskeletal: denies significant myalgias or arthralgias. No new joint swelling. Denies new back pain. Skin: Denies new rash or lesions. No new ulcers or wounds are related.. Neuro: Denies headache or visual change. Denies any new onset weakness or difficulty with ambulation. Denies falls or seizures. Psychiatric:Denies anxiety or depression. Endocrine: Denies significant fatigue, denies significant weight loss or weight gain. Urological as per the HPI Past Medical History Past Medical History: Asthma, GI Bleed, Hypertension, Osteoarthritis (OA) Additional Past Medical History / Comment(s): Chronic cervical and back pain, arthritis in spine, reactive asthma, lower GI bleed. History of Any Multi-Drug Resistant Organisms: None Reported Past Surgical History: Breast Surgery, Section, Orthopedic Surgery, Tonsillectomy Additional Past Surgical History / Comment(s): Bilateral breast implants, colonoscopy-normal, cervical to thoracic spinal surgery-has hardware, C- sections x2. Past Anesthesia/Blood Transfusion Reactions: No Reported Reaction Additional Psychological History / Comment(s): . Retired from working at her 's office. No recent travels. No animal exposures. Lif[employer] nonsmoker Smoking Status: Former smoker - Past Family History Father Family Medical History: Respiratory Disorder Additional Family Medical History / Comment(s): Father had mesothelioma. Mother Family Medical History: Cancer, Vascular Disorder Additional Family Medical History / Comment(s): Mother of a ruptured thoracic/aortic aneurysm at the age of 81 yrs. She had lung cancer. Medications and Allergies Home Medications and Allergies Comment(s): Current Medications Acetaminophen (Tylenol Tab) 650 mg PO Q6HR PRN PRN Reason: Mild Pain or Fever > 100.5 Last Admin: 04/05/18 19:32 Dose: 650 mg Albuterol Sulfate (Ventolin Nebulized) 2.5 mg INHALATION RT-Q6H PRN PRN Reason: Shortness Of Breath Alprazolam (Xanax) 0.25 mg PO Q6HR PRN PRN Reason: Anxiety Last Admin: 04/05/18 21:22 Dose: 0.25 mg Baclofen (Lioresal) 10 mg PO TID [facility] Last Admin: 04/05/18 21:22 Dose: 10 mg Ciprofloxacin (Cipro) 250 mg PO BID [facility] Last Admin: 04/05/18 21:22 Dose: 250 mg Enoxaparin Sodium (Lovenox) 30 mg SQ DAILY [facility] Last Admin: 04/05/18 08:20 Dose: 30 mg Sodium Chloride (Saline 0.9%) 1,000 mls @ 20 mls/hr IV .Q24H [facility] Last Admin: 04/05/18 16:25 Dose: Not Given Melatonin (Melatonin) 3 mg PO HS PRN PRN Reason: Insomnia Naloxone HCl (Narcan) 0.2 mg IV Q2M PRN PRN Reason: Opioid Reversal Ondansetron HCl (Zofran) 4 mg IVP Q8HR PRN PRN Reason: Nausea And Vomiting Home Medications Medication Instructions Recorded Confirmed Type Acetaminophen [Tylenol] 650 mg PO Q6HR PRN 03/30/18 03/30/18 History Albuterol Sulfate [Proair Hfa] 2 puff INHALATION RT-Q6H PRN 03/30/18 03/30/18 History Baclofen [Lioresal] 20 mg PO TID 03/30/18 03/30/18 History Biotin 300 mcg PO DAILY 03/30/18 03/30/18 History Calcium Carbonate [Calcium] 600 mg PO DAILY 03/30/18 03/30/18 History Ibuprofen [Motrin Ib] 800 mg PO TID PRN 03/30/18 03/30/18 History Losartan-Hctz 50-12.5 mg [Hyzaar 1 tab PO DAILY 03/30/18 03/30/18 History 50-12.5] Vitamin B Complex 1 cap PO DAILY 03/30/18 03/30/18 History Vitamin E 100 unit PO DAILY 03/30/18 03/30/18 History Ciprofloxacin HCl [Cipro] 250 mg PO Q12HR #30 tablet 04/05/18 Rx Allergies Allergy/AdvReac Type Severity Reaction Status Date / Time No Known Allergies Allergy Verified 03/30/18 12:13 Physical Exam Vitals: Vital Signs Temp Pulse Resp BP Pulse Ox 04/05/18 17:28 98.8 F 04/05/18 14:53 101.1 F H 04/05/18 14:26 99.5 F 100 16 134/67 95 04/05/18 07:40 98.1 F 79 16 119/70 97 04/04/18 22:45 16 Intake and Output 04/05/18 04/05/18 04/05/18 06:59 14:59 22:59 Intake Total 550 1000 Output Total 1400 1200 1450 Balance -850 -200 -1450 Intake: Oral 550 1000 Output: Urine 1400 1200 1450 Other: Voiding Method Toilet Toilet # Bowel Movements 2 1 Weight 61.5 kg 61.5 kg Very pleasant 62-year-old woman who is not in mack distress at this time HEENT: Anicteric conjunctiva are pink and moist nasal mucosa grossly intact without significant lesions, there is no thrush. Neck: The neck is supple without significant lymphadenopathy or thyromegaly. Lungs: Good bilateral air entry without significant crackles or wheezing. There is no significant bronchial sounds. There is no egophony or dullness. Heart: Regular rate and rhythm with an audible S1-S2, no S3 no S4. There is no significant murmur click or rub, PMI was nondisplaced. Abdomen: Positive bowel sounds soft and nontender without palpable masses or organomegaly. There was no guarding or rebound. The left flank he has evidence of some tenderness no bruising is noted. Does have some suprapubic tenderness still. Extremities: The upper extremities have excellent pulses they are symmetric, no significant petechiae or telangiectasia. No splinter hemorrhages were noted. The lower extremities to have some edema but no open lesions the peripheral pulses were 2+ and symmetric. Neuro: Awake alert oriented to person place and time. There are no acute new gross focal sensory motor deficits. Results CBC & Chem 7: 04/02/18 06:26 04/05/18 06:46 Labs: Abnormal Lab Results - Last 24 Hours (Table) 04/05/18 Range/Units 06:46 Sodium 136 L (137-145) mmol/L Chloride 95 L (98-107) mmol/L Carbon Dioxide 32 H (22-30) mmol/L BUN 68 H (7-17) mg/dL Creatinine 1.89 H (0.52-1.04) mg/dL Glucose 105 H (74-99) mg/dL Laboratory Results WBC 20.4 k/uL (3.8-10.6) H 04/02/18 06:26 RBC 3.78 m/uL (3.80-5.40) L 04/02/18 06:26 Hgb 11.4 gm/dL (11.4-16.0) 04/02/18 06:26 Hct 33.2 % (34.0-46.0) L 04/02/18 06:26 MCV 87.8 fL (80.0-100.0) 04/02/18 06:26 MCH 30.0 pg (25.0-35.0) 04/02/18 06:26 MCHC 34.2 g/dL (31.0-37.0) 04/02/18 06:26 RDW 13.3 % (11.5-15.5) 04/02/18 06:26 Plt Count 150 k/uL (150-450) D 04/02/18 06:26 Neutrophils % 89 % 04/02/18 06:26 Lymphocytes % 5 % 04/02/18 06:26 Monocytes % 4 % 04/02/18 06:26 Eosinophils % 0 % 04/02/18 06:26 Basophils % 0 % 04/02/18 06:26 Neutrophils # 18.2 k/uL (1.3-7.7) H 04/02/18 06:26 Lymphocytes # 1.1 k/uL (1.0-4.8) 04/02/18 06:26 Monocytes # 0.7 k/uL (0-1.0) 04/02/18 06:26 Eosinophils # 0.1 k/uL (0-0.7) 04/02/18 06:26 Basophils # 0.0 k/uL (0-0.2) 04/02/18 06:26 Polychromasia Present 03/30/18 13:25 Poikilocytosis (manual Present 03/30/18 13:25 Sample Site rrad 04/03/18 07:47 ABG pH 7.48 (7.35-7.45) H 04/03/18 07:47 ABG pCO2 41 mmHg (35-45) 04/03/18 07:47 ABG pO2 68 mmHg (83-108) L 04/03/18 07:47 ABG HCO3 31 mmol/L (21-25) H 04/03/18 07:47 ABG Total CO2 32 mmol/L (19-24) H 04/03/18 07:47 ABG O2 Saturation 96.0 % (94-97) 04/03/18 07:47 ABG Base Excess 7.4 mmol/L 04/03/18 07:47 Kennedy Test Yes 04/03/18 07:47 FiO2 21 % 04/03/18 07:47 Sodium 136 mmol/L (137-145) L 04/05/18 06:46 Potassium 4.1 mmol/L (3.5-5.1) 04/05/18 06:46 Chloride 95 mmol/L (98-107) L 04/05/18 06:46 Carbon Dioxide 32 mmol/L (22-30) H 04/05/18 06:46 Anion Gap 9 mmol/L 04/05/18 06:46 BUN 68 mg/dL (7-17) H 04/05/18 06:46 Creatinine 1.89 mg/dL (0.52-1.04) H 04/05/18 06:46 Est GFR (CKD-EPI)AfAm 33 (>60 ml/min/1.73 sqM) 04/05/18 06:46 Est GFR (CKD-EPI)NonAf 28 (>60 ml/min/1.73 sqM) 04/05/18 06:46 Glucose 105 mg/dL (74-99) H 04/05/18 06:46 Osmolality 301 mosm/kg (280-301) 04/03/18 06:02 Calcium 8.6 mg/dL (8.4-10.2) 04/05/18 06:46 Phosphorus 5.2 mg/dL (2.5-4.5) H 03/30/18 13:25 Magnesium 1.8 mg/dL (1.6-2.3) 04/04/18 06:47 Total Bilirubin 1.0 mg/dL (0.2-1.3) 04/02/18 06:26 AST 47 U/L (14-36) H 04/02/18 06:26 ALT 54 U/L (9-52) H 04/02/18 06:26 Alkaline Phosphatase 201 U/L (38-126) H 04/02/18 06:26 Total Protein 5.0 g/dL (6.3-8.2) L 04/02/18 06:26 Albumin 2.6 g/dL (3.5-5.0) L 04/02/18 06:26 Urine Color Colorless 04/05/18 15:40 Urine Appearance Clear (Clear) 04/05/18 15:40 Urine pH 7.0 (5.0-8.0) 04/05/18 15:40 Ur Specific Sims 1.004 (1.001-1.035) 04/05/18 15:40 Urine Protein Negative (Negative) 04/05/18 15:40 Urine Glucose (UA) Negative (Negative) 04/05/18 15:40 Urine Ketones Negative (Negative) 04/05/18 15:40 Urine Blood Negative (Negative) 04/05/18 15:40 Urine Nitrite Negative (Negative) 04/05/18 15:40 Urine Bilirubin Negative (Negative) 04/05/18 15:40 Urine Urobilinogen <2.0 mg/dL (<2.0) 04/05/18 15:40 Ur Leukocyte Esterase Negative (Negative) 04/05/18 15:40 Urine RBC 10 /hpf (0-5) H 03/30/18 13:15 Urine WBC 107 /hpf (0-5) H 03/30/18 13:15 Urine Bacteria Rare /hpf (None) H 03/30/18 13:15 Hyaline Casts 1 /lpf (0-2) 03/30/18 13:15 Urine Mucus Rare /hpf (None) H 03/30/18 13:15 Urine Eosinophils % 04/01/18 13:15 Urine Osmolality 221 mosm/kg (50-1400) 04/03/18 04:45 Ur Random Sodium 51 mmol/L (30-90) 04/03/18 04:45 Microbiology 03/30/18 13:15 Urine,Voided Urine Culture - Final Outside hospital was contacted personally and blood cultures are coming back as a same E. coli was sensitive from the urine. Assessment and Plan (1) Acute kidney injury Current Visit: Yes Status: Acute Code(s): N17.9 - ACUTE KIDNEY FAILURE, UNSPECIFIED SNOMED Code(s): 78420314 (2) Gram-negative sepsis with organ dysfunction Narrative/Plan: 62-year-old female presents to [facility] is a transfer from [facility] because of acute renal failure and evidence of sepsis. This pleasant woman has a known history of significant degenerative disease of her spine is had multiple surgeries and has chronic pain from that. She takes ibuprofen 800 mg 3-4 times per day an ongoing basis. She also has hypertension and does take Hyzaar. She has been seen by nephrology it appears that the underlying sepsis with dehydration and medications resulted in the acute renal failure that is starting to show improvement. She will follow with nephrology after discharge. The patient at presentation did have evidence of sepsis is not found evidence of gram-negative bacteremia from urinary tract infection and pyelonephritis. The blood cultures were obtained this evening revealing evidence of the same E. coli that was in her urine. Given that she is bacteremic and likely has pyelonephritis would utilize other fluoroquinolone or sulfa for the treatment of her current illness. With her acute renal failure would avoid sulfa medications and consequently initiate Cipro at this point in time. The plan a 2 week course of therapy for her sepsis from her pyelonephritis. We'll expect she can still have some low-grade fevers even for the next few days. Is on a she's able to eat and drink, having no nausea or emesis, tolerated medications shouldn't be able to be discharged home utilizing Tylenol for pain control. Avoiding ibuprofen, Hyzaar been on hold her blood pressure is been adequate at this time. We'll monitor by nephrology in the outpatient setting. The patient' s questions about her infection are answered at this time. Current Visit: Yes Status: Acute Code(s): A41.50 - GRAM-NEGATIVE SEPSIS, UNSPECIFIED; R65.20 - SEVERE SEPSIS WITHOUT SEPTIC SHOCK SNOMED Code(s): 427052574 (3) Pyelonephritis due to Escherichia coli Current Visit: Yes Status: Acute Code(s): N12 - TUBULO-INTERSTITIAL NEPHRITIS, NOT SPCF ACUTE OR CHRONIC; B96.20 - UNSP ESCHERICHIA COLI THE CA[facility]EASES [facility] SNOMED Code(s): 66329845
--- NOTE | 2018-04-06 00:13 | PN ---
PROGRESS NOTE DATE OF SERVICE: 04/04/18 PRESENTING COMPLAINT: Chills. INTERVAL HISTORY: Patient presented with acute renal failure, UTI from E coli. Today patient told me that she was having chills and oral thermometer recording of 99.3, given that patient was feeling I did the nurse get a check a rectal temperature that came back at 101.6. ID was asked was therefore consulted. REVIEW OF SYSTEMS: Done for constitutional, cardiovascular, GI, pulmonary, relevant findings as above. The patient is having the chills, but overall the patient's edema had gone down. Appetite is getting better. Patient has been walking about. CURRENT MEDICATIONS: Reviewed. Keflex was switched over to ciprofloxacin by Dr. Garber. PHYSICAL EXAMINATION: T-max 101.1, pulse 100, respirations 16, blood pressure 130/67, pulse ox 95% on room air. General appearance: Sitting up in a chair. Overall looking better. EYES: Pupils are equal. Conjunctivae normal. HEENT external appearance of nose and ears normal. Oral cavity normal. Neck JVD not raised. Mass not palpable. Respiratory effort lungs are clear. Cardiovascular: 1st and 2nd sounds normal. Edema present, but decreased. ABDOMEN: Soft, nontender. Liver and spleen not palpable. Psychiatry: Alert and oriented x3. Mood and affect is normal. INVESTIGATIONS: Blood cultures from the outside hospital also showed E coli in addition to the urine. Potassium 4.1, BUN 68, creatinine 1.89. ASSESSMENT: 1. Acute urinary tract infection with sepsis present on admission with blood and urine cultures growing E coli. 2. Nonoliguric acute renal failure, combination of acute tubular necrosis and pre acute tubular necrosis prerenal continues to improve. 3. Acute metabolic acidosis from renal failure, on presentation, resolved. 4. Hyponatremia, likely hypoosmolar. 5. Hypoalbuminemia as an acute phase reactant. 6. 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 7. Thrombocytopenia likely from infection, improved. 8. Metabolic alkalosis probably from volume contraction. PLAN: Patient is keen to go home. I did talk to her and the and after the temperature came back up we did get a consultation with Dr. Garber, with whom I discussed the care. He is switching the patient over to ciprofloxacin. Earlier today cultures had been sent off. We will see how the patient does clinically. Total time spent today was about 45 minutes including about 25 minutes of discussion including that with the patient and Dr. Garber. ALYSE / VIJAYN: [id number] /
[2018-04-06] MEDS: ACETAMINOPHEN TAB 325 MG TAB PO PRN ×3 (03:00→13:58)
[2018-04-06] MEDS: ALPRAZolam 0.25 MG TAB PO PRN ×3 (03:06→13:58)
[2018-04-06] MEDS: BACLOFEN 10 MG TAB PO SCH (08:26)
[2018-04-06] MEDS: ENOXAPARIN 30 MG/0.3 ML SYRINGE SQ SCH (08:26)
[2018-04-06] MEDS: CIPROFLOXACIN HCL 250 MG TAB PO SCH (08:26)
--- NOTE | 2018-04-06 10:26 | P.PN ---
Subjective Patient is seen in follow for acute kidney injury. Creatinine peaked at 4.5 on March 31 and has been gradually improving - 1.89 as of yesterday. Patient's currently sitting up in chair. Oral intake is fair. She has been voiding. Edema mostly resolved with Lasix. No vomiting or diarrhea. Vital signs are stable. General: The patient appeared well nourished and normally developed. HEENT: Head exam is unremarkable. Neck is without jugular venous distension. LUNGS: Lungs are clear to auscultation and percussion. Breath sounds decreased. HEART: Rate and Rhythm are regular. First and second heart sounds normal. No murmurs, rubs or gallops. ABDOMEN: Abdominal exam reveals normal bowel sounds. Non-tender and non- distended. No evidence of peritonitis. EXTREMITITES: Trace edema. Objective - Vital Signs Vital signs: Vital Signs Temp 97.9 F 04/06/18 07:35 Pulse 78 04/06/18 07:35 Resp 20 04/06/18 07:35 BP 126/80 04/06/18 07:35 Pulse Ox 97 04/06/18 07:35 Intake & Output 04/05/18 04/06/18 04/06/18 18:59 06:59 18:59 Intake Total 1000 590 Output Total 2650 2900 Balance -1650 -2310 Weight 61.5 kg 60 kg Intake: Oral 1000 590 Output: Urine 2650 2900 Other: Voiding Method Toilet Toilet Toilet # Voids 1 # Bowel Movements 1 - Labs CBC & Chem 7: 04/02/18 06:26 04/05/18 06:46 Assessment and Plan Plan: Assessment: 1. Nonoliguric acute kidney injury secondary to ATN secondary to nonsteroidals and urinary tract infection. Creatinine peaked at 4.5 this admission and was down to 1.8 and as of yesterday. 2. UTI maintained on antibiotics. 3. Metabolic acidosis secondary to acute kidney injury. s/p bicarb drip. Resolved. 4. Hypokalemia secondary to diuresis. Improved post replacement. 5. Hypervolemic hyponatremia. Improved with diuresis. Plan: Encouraged oral intake. Avoid nephrotoxic agents. No need for diuretics today. Anticipate discharge soon. She will need to follow-up as an outpatient in the next 1-2 weeks. Continue to hold losartan.
[2018-04-06] MEDS: SODIUM CHLORIDE 0.9% 1,000 ML IV SCH (11:35)
[2018-04-06 12:04] LABS: Calcium 8.8 mg/dL (8.4-10.2); Potassium 4.6 mmol/L (3.5-5.1)
[2018-04-06 12:20] LABS: Basophils # (A) 0.1 k/uL (0-0.2); Basophils % (A) 1 %; Eosinophils # (A) 0.1 k/uL (0-0.7); Eosinophils % (A) 0 %; HCT 27.9 % (34.0-46.0); Lymphocytes # (A) 1.3 k/uL (1.0-4.8); Lymphocytes % (A) 7 %; MCH 29.2 pg (25.0-35.0); MCHC 31.8 g/dL (31.0-37.0); MCV 91.8 fL (80.0-100.0); Mean Platelet Volume 7.1; Monocytes # (A) 0.5 k/uL (0-1.0); Monocytes % (A) 3 %; Neutrophils # (A) 16.7 k/uL (1.3-7.7); Neutrophils % (A) 89 %; RBC 3.04 m/uL (3.80-5.40); RDW 13.2 % (11.5-15.5); WBC 18.8 k/uL (3.8-10.6)
[2018-04-06 12:21] LABS: HGB 8.9 gm/dL (11.4-16.0); Platelet Count 761 k/uL (150-450)
[2018-04-06 12:45] VITALS: BP 126/79; PULSE 81; RESP 18; TEMP 98
--- NOTE | 2018-04-06 20:46 | P.PN ---
Subjective Progress Note Date: 04/06/18 Patient feeling considerably better today. She has met as she is being discharged from the hospital. Her case is discussed with her Dr. Cortés. We discussed the gram-negative sepsis with E. coli from the urinary system specifically from pyelonephritis. That the acute renal failure was multifactorial including the sepsis, relative hypotension, ibuprofen therapy for her severe arthritis, and her Hyzaar. Fortunately she's having marked improvement of her renal function and is feeling well enough to go home. Her urinary symptoms have improved. She is afebrile Objective - Vital Signs Vital signs: Vital Signs Temp 98 F 04/06/18 11:00 Pulse 81 04/06/18 11:00 Resp 18 04/06/18 11:00 BP 126/79 04/06/18 11:00 Pulse Ox 97 04/06/18 11:00 Intake & Output 04/06/18 04/06/18 04/07/18 06:59 18:59 06:59 Intake Total 590 600 Output Total 2900 Balance -2310 600 Weight 60 kg Intake: Oral 590 600 Output: Urine 2900 Other: Voiding Method Toilet Toilet # Voids 1 2 - Exam Patient is in a wheelchair looking comfortable. Feels considerably better than she did a day ago. - Labs CBC & Chem 7: 04/06/18 11:20 04/06/18 11:20 Labs: Abnormal Lab Results - Last 24 Hours (Table) 04/06/18 04/06/18 Range/Units 11:20 11:20 WBC 18.8 H (3.8-10.6) k/uL RBC 3.04 L (3.80-5.40) m/uL Hgb 8.9 L D (11.4-16.0) gm/dL Hct 27.9 L (34.0-46.0) % Plt Count 761 H D (150-450) k/uL Neutrophils # 16.7 H (1.3-7.7) k/uL Chloride 92 L (98-107) mmol/L Carbon Dioxide 33 H (22-30) mmol/L BUN 55 H (7-17) mg/dL Creatinine 1.77 H (0.52-1.04) mg/dL Microbiology - Last 24 Hours (Table) 04/05/18 15:48 Blood Culture - Preliminary Blood No Growth after 24 hours 04/05/18 14:50 Blood Culture - Preliminary Blood No Growth after 24 hours Laboratory Results WBC 18.8 k/uL (3.8-10.6) H 04/06/18 11:20 RBC 3.04 m/uL (3.80-5.40) L 04/06/18 11:20 Hgb 8.9 gm/dL (11.4-16.0) L D 04/06/18 11:20 Hct 27.9 % (34.0-46.0) L 04/06/18 11:20 MCV 91.8 fL (80.0-100.0) 04/06/18 11:20 MCH 29.2 pg (25.0-35.0) 04/06/18 11:20 MCHC 31.8 g/dL (31.0-37.0) 04/06/18 11:20 RDW 13.2 % (11.5-15.5) 04/06/18 11:20 Plt Count 761 k/uL (150-450) H D 04/06/18 11:20 Neutrophils % 89 % 04/06/18 11:20 Lymphocytes % 7 % 04/06/18 11:20 Monocytes % 3 % 04/06/18 11:20 Eosinophils % 0 % 04/06/18 11:20 Basophils % 1 % 04/06/18 11:20 Neutrophils # 16.7 k/uL (1.3-7.7) H 04/06/18 11:20 Lymphocytes # 1.3 k/uL (1.0-4.8) 04/06/18 11:20 Monocytes # 0.5 k/uL (0-1.0) 04/06/18 11:20 Eosinophils # 0.1 k/uL (0-0.7) 04/06/18 11:20 Basophils # 0.1 k/uL (0-0.2) 04/06/18 11:20 Polychromasia Present 03/30/18 13:25 Poikilocytosis (manual Present 03/30/18 13:25 Sample Site rrad 04/03/18 07:47 ABG pH 7.48 (7.35-7.45) H 04/03/18 07:47 ABG pCO2 41 mmHg (35-45) 04/03/18 07:47 ABG pO2 68 mmHg (83-108) L 04/03/18 07:47 ABG HCO3 31 mmol/L (21-25) H 04/03/18 07:47 ABG Total CO2 32 mmol/L (19-24) H 04/03/18 07:47 ABG O2 Saturation 96.0 % (94-97) 04/03/18 07:47 ABG Base Excess 7.4 mmol/L 04/03/18 07:47 Kennedy Test Yes 04/03/18 07:47 FiO2 21 % 04/03/18 07:47 Sodium 137 mmol/L (137-145) 04/06/18 11:20 Potassium 4.6 mmol/L (3.5-5.1) 04/06/18 11:20 Chloride 92 mmol/L (98-107) L 04/06/18 11:20 Carbon Dioxide 33 mmol/L (22-30) H 04/06/18 11:20 Anion Gap 12 mmol/L 04/06/18 11:20 BUN 55 mg/dL (7-17) H 04/06/18 11:20 Creatinine 1.77 mg/dL (0.52-1.04) H 04/06/18 11:20 Est GFR (CKD-EPI)AfAm 35 (>60 ml/min/1.73 sqM) 04/06/18 11:20 Est GFR (CKD-EPI)NonAf 31 (>60 ml/min/1.73 sqM) 04/06/18 11:20 Glucose 96 mg/dL (74-99) 04/06/18 11:20 Osmolality 301 mosm/kg (280-301) 04/03/18 06:02 Calcium 8.8 mg/dL (8.4-10.2) 04/06/18 11:20 Phosphorus 5.2 mg/dL (2.5-4.5) H 03/30/18 13:25 Magnesium 1.8 mg/dL (1.6-2.3) 04/04/18 06:47 Total Bilirubin 1.0 mg/dL (0.2-1.3) 04/02/18 06:26 AST 47 U/L (14-36) H 04/02/18 06:26 ALT 54 U/L (9-52) H 04/02/18 06:26 Alkaline Phosphatase 201 U/L (38-126) H 04/02/18 06:26 Total Protein 5.0 g/dL (6.3-8.2) L 04/02/18 06:26 Albumin 2.6 g/dL (3.5-5.0) L 04/02/18 06:26 Urine Color Colorless 04/05/18 15:40 Urine Appearance Clear (Clear) 04/05/18 15:40 Urine pH 7.0 (5.0-8.0) 04/05/18 15:40 Ur Specific [place] 1.004 (1.001-1.035) 04/05/18 15:40 Urine Protein Negative (Negative) 04/05/18 15:40 Urine Glucose (UA) Negative (Negative) 04/05/18 15:40 Urine Ketones Negative (Negative) 04/05/18 15:40 Urine Blood Negative (Negative) 04/05/18 15:40 Urine Nitrite Negative (Negative) 04/05/18 15:40 Urine Bilirubin Negative (Negative) 04/05/18 15:40 Urine Urobilinogen <2.0 mg/dL (<2.0) 04/05/18 15:40 Ur Leukocyte Esterase Negative (Negative) 04/05/18 15:40 Urine RBC 10 /hpf (0-5) H 03/30/18 13:15 Urine WBC 107 /hpf (0-5) H 03/30/18 13:15 Urine Bacteria Rare /hpf (None) H 03/30/18 13:15 Hyaline Casts 1 /lpf (0-2) 03/30/18 13:15 Urine Mucus Rare /hpf (None) H 03/30/18 13:15 Urine Eosinophils % 04/01/18 13:15 Urine Osmolality 221 mosm/kg (50-1400) 04/03/18 04:45 Ur Random Sodium 51 mmol/L (30-90) 04/03/18 04:45 Microbiology 04/05/18 15:48 Blood Blood Culture - Preliminary No Growth after 24 hours 04/05/18 14:50 Blood Blood Culture - Preliminary No Growth after 24 hours 03/30/18 13:15 Urine,Voided Urine Culture - Final Assessment and Plan (1) Acute kidney injury Status: Acute Code(s): N17.9 - ACUTE KIDNEY FAILURE, UNSPECIFIED SNOMED Code (s): 34176043 (2) Gram-negative sepsis with organ dysfunction Narrative/Plan: 62-year-old female presents to [facility] is a transfer from [facility] because of acute renal failure and evidence of sepsis. This pleasant woman has a known history of significant degenerative disease of her spine is had multiple surgeries and has chronic pain from that. She takes ibuprofen 800 mg 3-4 times per day an ongoing basis. She also has hypertension and does take Hyzaar. She has been seen by nephrology it appears that the underlying sepsis with dehydration and medications resulted in the acute renal failure that is starting to show improvement. She will follow with nephrology after discharge. The patient at presentation did have evidence of sepsis is not found evidence of gram-negative bacteremia from urinary tract infection and pyelonephritis. The blood cultures were obtained this evening revealing evidence of the same E. coli that was in her urine. Given that she is bacteremic and likely has pyelonephritis would utilize other fluoroquinolone or sulfa for the treatment of her current illness. With her acute renal failure would avoid sulfa medications and consequently initiate Cipro at this point in time. The plan a 2 week course of therapy for her sepsis from her pyelonephritis. We'll expect she can still have some low-grade fevers even for the next few days. Is on a she's able to eat and drink, having no nausea or emesis, tolerated medications shouldn't be able to be discharged home utilizing Tylenol for pain control. Avoiding ibuprofen, Hyzaar been on hold her blood pressure is been adequate at this time. We'll monitor by nephrology in the outpatient setting. The patient' s questions about her infection are answered at this time. 04/06/2018 the patient is considerably improved. She is ready for discharge to home. Her creatinine is improved to 1.77. The leukocytosis is decreased from 22-18. She's not hypotensive and having no fever. The plan is for discharge to home and follow up with nephrology. May follow-up with infectious disease in the office if there is any further issues regarding the pyelonephritis and gram-negative sepsis though treated with ciprofloxacin that was personally sent to her pharmacy. Planning 2 weeks of therapy for her pyelonephritis and gram- negative sepsis from E. coli. 's questions are answered. Status: Acute Code(s): A41.50 - GRAM-NEGATIVE SEPSIS, UNSPECIFIED; R65.20 - SEVERE SEPSIS WITHOUT SEPTIC SHOCK SNOMED Code(s): 996406923 (3) Pyelonephritis due to Escherichia coli Status: Acute Code(s): N12 - TUBULO-INTERSTITIAL NEPHRITIS, NOT SPCF ACUTE OR CHRONIC; B96.20 - UNSP ESCHERICHIA COLI THE CAUSE OF DISEASES [facility] SNOMED Code(s): 40857216
== END 2018-04-06 16:10 | disposition home or self-care (01) | DRG 871 ==
LOC: 5ONC 11:43
PROVIDERS: ADMIT Hospitalist; ATTEND Hospitalist
DX: A41.51 Sepsis due to Escherichia coli [E. coli] (principal); N17.0 Acute kidney failure with tubular necrosis; E87.4 Mixed disorder of acid-base balance; E87.1 Hypo-osmolality and hyponatremia; N12 Tubulo-interstitial nephritis, not specified as acute or chronic; R44.3 Hallucinations, unspecified; E83.39 Other disorders of phosphorus metabolism; E88.09 Other disorders of plasma-protein metabolism, not elsewhere classified; R65.20 Severe sepsis without septic shock; D69.59 Other secondary thrombocytopenia; E87.70 Fluid overload, unspecified; E86.0 Dehydration; E87.6 Hypokalemia; E86.1 Hypovolemia; M47.812 Spondylosis without myelopathy or radiculopathy, cervical region; M47.814 Spondylosis without myelopathy or radiculopathy, thoracic region; I10 Essential (primary) hypertension; G89.29 Other chronic pain; T39.395A Adverse effect of other nonsteroidal anti-inflammatory drugs [NSAID], initial encounter; M62.838 Other muscle spasm; T50.2X5A Adverse effect of carbonic-anhydrase inhibitors, benzothiadiazides and other diuretics, initial encounter; E66.3 Overweight; Z68.24 Body mass index [BMI] 24.0-24.9, adult; J45.909 Unspecified asthma, uncomplicated; Z79.899 Other long term (current) drug therapy; Z98.82 Breast implant status; Z87.891 Personal history of nicotine dependence; Z80.1 Family history of malignant neoplasm of trachea, bronchus and lung; Z82.49 Family history of ischemic heart disease and other diseases of the circulatory system; Z80.9 Family history of malignant neoplasm, unspecified
CPT/HCPCS: 36600; 71045; 71046; 76770; 80048; 80053; 81001; 81003; 82805; 83735; 83930; 83935; 84100; 84132; 84300; 85025; 87040; 87086; 87205

== ENCOUNTER → 2018-10-26 | Outpatient (CLI) | payer BC ==
--- NOTE | 2018-10-26 08:36 | USB ---
Reason for exam: additional evaluation requested from abnormal screening. History: Patient is postmenopausal. Saline implants in both breasts, 1985. US Breast Workup Limited LT Left limited breast ultrasound including focal area of concern, retroareolar and axilla demonstrates no cystic or solid lesion seen. These results were verbally communicated with the patient and result sheet given to the patient on 10/26/18. ASSESSMENT: Negative, BI-RAD 1 RECOMMENDATION: Return to routine screening mammogram schedule for both breasts. Manage patient on a clinical basis.
--- NOTE | 2018-10-26 08:36 | MM ---
Reason for exam: screening (asymptomatic). Baseline mammogram. History: Patient is postmenopausal. Saline implants in both breasts, 1985. Physical Findings: Nurse Summary: 1.5cm nodule in the left breast at 7 o'clock (nurse omega). MG 3D Screen Mammo Imp/Cad Bilateral CC, MLO, and ID view(s) were taken. The breast tissue is heterogeneously dense. This may lower the sensitivity of mammography. There is no discrete abnormality. Calcified implants are intact. These results were verbally communicated with the patient and result sheet given to the patient on 10/26/18. ASSESSMENT: Incomplete: need additional imaging evaluation, BI-RAD 0 RECOMMENDATION: Ultrasound of the left breast. (palpable)
== END | disposition home or self-care (01) ==
LOC: RADMAMWWP 07:07
PROVIDERS: ATTEND Family Medicine
DX: Z12.31 Encounter for screening mammogram for malignant neoplasm of breast (principal); R92.8 Other abnormal and inconclusive findings on diagnostic imaging of breast
CPT/HCPCS: 77063; 77067

== ENCOUNTER → 2022-02-23 | Outpatient (CLI) | payer MEDICARE, BC ==
--- NOTE | 2022-02-23 15:04 | MM ---
Reason for exam: additional evaluation requested from prior study. Last mammogram was performed 3 years and 4 months ago. History: Patient is postmenopausal. Saline implants in both breasts, 1985. Physical Findings: A clinical breast exam by your physician is recommended on an annual basis and results should be correlated with mammographic findings. MG 3D Diag Mammo Imp W/Cad MIKEY Bilateral CC, MLO, and ID view(s) were taken. Prior study comparison: October 26, 2018, bilateral MG 3d screen mammo imp/cad. The breast tissue is extremely dense which could obscure a lesion on mammography. Benign vascular calcifications. Benign oil cyst calcifications medial right breast. Retropectoral silicone implants. ASSESSMENT: Incomplete: need additional imaging evaluation, BI-RAD 0 RECOMMENDATION: Ultrasound of the right breast.
--- NOTE | 2022-02-23 15:05 | USB ---
Reason for exam: additional evaluation requested from abnormal screening. History: Patient is postmenopausal. Saline implants in both breasts, 1985. Physical Findings: A clinical breast exam by your physician is recommended on an annual basis and results should be correlated with mammographic findings. US Breast RT Right complete breast ultrasound includes all four quadrants, the retroareolar region and axilla. Finding demonstrates a 0.4 x 0.4 x 0.2cm cystic, benign lesion at 4 o'clock 2cm from nipple. Very dense tissues. Underlying implant noted. ASSESSMENT: Benign, BI-RAD 2 RECOMMENDATION: Routine screening mammogram of both breasts in 1 year. Manage on a clinical basis with regard to right breast pain.
== END | disposition home or self-care (01) ==
LOC: RADMAMWWP 13:25
PROVIDERS: ATTEND Family Medicine
DX: N63.14 Unspecified lump in the right breast, lower inner quadrant (principal); Z78.0 Asymptomatic menopausal state; Z98.82 Breast implant status
CPT/HCPCS: 77066; 76641; G0279; 77062

== ENCOUNTER → 2023-09-28 | Outpatient (CLI) | payer MEDICARE, BC ==
--- NOTE | 2023-09-28 10:42 | BD ---
EXAMINATION TYPE: Axial Bone Density DATE OF EXAM: 09/28/2023 CLINICAL HISTORY: 68 years old Female. ICD-10 CODE: M85.88 disorder of bone Height: 60 Weight: 106.9 FRAX RISK QUESTIONS: Alcohol (3 or more units per day): no Family History (Parent hip fracture): no Glucocorticoids (More than 3mos): no (Ex: prednisone, prednisolone, methylprednisolone, dexamethasone, and hydrocortisone). History of Fracture in Adulthood: yes Secondary Osteoporosis: 1. Type 1 Diabetes: no 2. Hyperthyroidism: no 3. Menopause before 45: no 4. Malnutrition: no 5. Chronic liver disease: no Rheumatoid Arthritis: no Current Tobacco Use: no RISK FACTORS HISTORY OF: Spine Fracture: lumbar spine When: age 25 Surgery to Spine/Hip(right/left)/Wrist (right/left): t spine Family History of Osteoporosis: yes Active: yes Diet low in dairy products/other sources of calcium: no Postmenopausal woman: yes Lost more than 2 inches in height since high school: yes MEDICATIONS: Additional History: EXAM MEASUREMENTS: Bone mineral densitometry was performed using the [employer] System. Bone mineral density about the R hip (g/cm2): 0.716 Bone mineral density about the L hip (g/cm2): 0.675 T Score values are as follows: -----R Neck: -1.8 -----L Neck: -2.3 -----R Total: -2.3 -----L Total: -2.6 Z Score values are as follows: -----R Neck: 0.1 -----L Neck: -0.4 -----R Total: -0.6 -----L Total: -0.9 Bone mineral density : baseline Bone mineral density about the L Wrist (g/cm2): 0.590 T Score values are as follows: -----Dist. R+U: -0.9 -----Prox. R+U: -1.7 -----Radius total: -1.4 Z Score values are as follows: -----Dist. R+U: 0.6 -----Prox. R+U: -0.1 -----Radius total: 0.2 Bone mineral density : baseline FRAX%s: The graph provided illustrates a 18.8% chance for a major osteoporotic fx and a 4.1% chance f or the hips probability for fx in 10 years time. IMPRESSION: Osteoporosis (T Score less than -2.5). There is increased fracture risk and therapy is usually indicated based on age. Re-Screen 1-2 years. NOTE: T-SCORE=SD OF THE YOUNG ADULT MEAN.
--- NOTE | 2023-09-29 23:27 | MM ---
Reason for Exam: Screening (asymptomatic). Last mammogram was performed 1 year(s) and 7 month(s) ago. Patient History: Menarche at age 14. First Full-Term at age 21. Postmenopausal. Patient has history of breast feeding. Patient used Hormonal Contraceptives for 3 years. 1986, Bilateral Implants. Risk Values: Urvashi 5 year model risk: 1.5%. NCI Lifetime model risk: 5.2%. Prior Study Comparison: 10/26/2018 Bilateral Screening Mammogram, [facility]. 02/23/2022 Bilateral Diagnostic Mammogram, [facility]. Tissue Density: The breast tissue is heterogeneously dense. This may lower the sensitivity of mammography. Findings: Analyzed By CAD. There are bilateral prepectoral calcified breast implants. There is no suspicious group of microcalcifications or new suspicious mass in either breast. Overall Assessment: Benign, BI-RAD 2 Management: Screening Mammogram of both breasts in 1 year. . Patient should continue monthly self-breast exams. A clinical breast exam by your physician is recommended on an annual basis. This exam should not preclude additional follow-up of suspicious palpable abnormalities. Note on Urvashi scores and lifetime risk: 1. A Urvashi score greater than 3% is considered moderate risk. If this is the case, consider specialist referral to assess eligibility for a risk reducing agent. 2. If overall lifetime risk for the development of breast cancer is 20% or higher, the patient may qualify for future screening with alternating mammogram and breast MRI. Electronically signed and approved by: Hebert Trejo M.D. Radiologist
== END | disposition home or self-care (01) ==
LOC: RADMAMWWP 09:27
PROVIDERS: ATTEND Family Medicine
DX: Z12.31 Encounter for screening mammogram for malignant neoplasm of breast (principal); M85.89 Other specified disorders of bone density and structure, multiple sites; Z78.0 Asymptomatic menopausal state
CPT/HCPCS: 77063; 77067; 77080

== ENCOUNTER 2023-11-20 21:59 | Inpatient (IN) | payer MEDICARE, BC ==
[2023-11-20] MEDS ORDERED: SODIUM CHLORIDE 0.9% 1,000 ML IV STA (22:34)
[2023-11-20] MEDS ORDERED: ONDANSETRON 4 MG/2 ML VIAL IVP PRN (22:35)
[2023-11-20] MEDS ORDERED: NALOXONE 0.4 MG/ML 1 ML VIAL IV PRN (22:36)
--- NOTE | 2023-11-20 23:04 | ED ---
General Adult HPI - General Chief complaint: GI Bleed Stated complaint: GI Bleed Time Seen by Provider: 11/20/23 22:03 Source: patient, RN notes reviewed, old records reviewed Mode of arrival: EMS Limitations: no limitations - History of Present Illness Initial comments: Patient is a 68-year-old female presents to the Emergency Department as a transfer from [facility] for GI bleed. Patient was accepted by a different ER provider after being accepted by patient's primary care physician Dr. Miller. Licha monroe notified separately and accepted the transfer. We did discuss with both Dr. monroe as well as family prior to transfer that we do not have GI services however they still were in agreement with transfer to our facility. Patient presents for suspected upper GI bleed as she has had tarry black stool for the last 1-2 days. Has had a total of 4-5 bowel movements of this. Has a history of daily ibuprofen use. She denies chest pain, abdominal pain. Denies any weakness. Laboratory studies at the outside facility were remarkable for hemoglobin of 8.5. States she normally has a normal hemoglobin. We have no recent hemoglobin on our system. She is not on blood thinners. No history of alcohol abuse. No hematemesis. No other acute complaints. CT imaging of the outside facility also revealed no obvious GI bleed. Patient presents for admission and observation. - Related Data Home Medications Medication Instructions Recorded Confirmed Acetaminophen [Tylenol] 650 mg PO Q6HR PRN 03/30/18 03/30/18 Albuterol Sulfate [Proair Hfa] 2 puff INHALATION RT-Q6H PRN 03/30/18 03/30/18 Biotin 300 mcg PO DAILY 03/30/18 03/30/18 Vitamin B Complex 1 cap PO DAILY 03/30/18 03/30/18 Vitamin E 100 unit PO DAILY 03/30/18 03/30/18 Previous Rx's Medication Instructions Recorded Ciprofloxacin HCl [Cipro] 250 mg PO Q12HR #30 tablet 04/05/18 Baclofen [Lioresal] 10 mg PO TID #0 04/06/18 Allergies Allergy/AdvReac Type Severity Reaction Status Date / Time No Known Allergies Allergy Verified 03/30/18 12:13 Review of Systems ROS Statement: Those systems with pertinent positive or pertinent negative responses have been documented in the HPI. Review of Systems: CONST: Denies fever EYES: Denies blurry vision ENT: Denies nasal congestion C/V: Denies Chest pain RESP: Denies shortness of breath GI: Endorses dark tarry black stools : Denies dysuria SKIN: Denies rash. MSK: Denies joint pain. NEURO: Denies headache ROS Other: All systems not noted in ROS Statement are negative. Past Medical History Past Medical History: Asthma, GI Bleed, Hypertension, Osteoarthritis (OA) Additional Past Medical History / Comment(s): Chronic cervical and back pain, arthritis in spine, reactive asthma, lower GI bleed. History of Any Multi-Drug Resistant Organisms: None Reported Past Surgical History: Breast Surgery, Section, Orthopedic Surgery, Tonsillectomy Additional Past Surgical History / Comment(s): Bilateral breast implants, colonoscopy-normal, cervical to thoracic spinal surgery-has hardware, C-sections x2. Past Anesthesia/Blood Transfusion Reactions: No Reported Reaction Past Psychological History: No Psychological Hx Reported Smoking Status: Former smoker Past Alcohol Use History: Occasional Past Drug Use History: Marijuana - Past Family History Father Family Medical History: Respiratory Disorder Additional Family Medical History / Comment(s): Father had mesothelioma. Mother Family Medical History: Cancer, Vascular Disorder Additional Family Medical History / Comment(s): Mother of a ruptured thoracic/aortic aneurysm at the age of 81 yrs. She had lung cancer. General Exam - General Exam Comments Initial Comments: General: Appears in no acute distress. HEAD: Normal with no signs of head trauma. EYES: PERRLA, EOMI, conjunctiva normal, no discharge. ENT: Hearing grossly intact, normal oropharynx. RESPIRATORY: Clear breath sounds bilaterally. No wheezes, rales, or rhonchi. C/V: Regular rate and rhythm. S1 and S2 auscultated, no edema, peripheral pulses 2+ and intact throughout ABD: Abd is soft, nontender, nondistended EXT: Normal range of motion, no obvious deformity SKIN: No rashes or lesions observed on exposed skin. NEURO: Alert and oriented x 4. Limitations: no limitations Course Vital Signs 11/20/23 11/20/23 22:06 23:50 Temperature 98.6 F Pulse Rate 101 H 102 H Respiratory 18 18 Rate Blood Pressure 110/81 104/75 O2 Sat by Pulse 97 98 Oximetry Medical Decision Making - Medical Decision Making Was pt. sent in by a medical professional or institution (ETHEL Rebollar, ELECTRIC [employer] FURNACE OPERATOR, urgent care, hospital, or fci...) When possible be specific @ -Transferred from [facility] for admission under Dr. Miller Did you speak to anyone other than the patient for history (EMS, parent, family, police, friend...)? What history was obtained from this source @ -Spoke with Dr. Miller regarding the patient and he accepted the admission prior to transfer due to patient request. Did you review nursing and triage notes (agree or disagree)? Why? @ -I reviewed and agree with nursing and triage notes Were old charts reviewed (outside hosp., previous admission, EMS record, old EKG, old radiological studies, urgent care reports/EKG's, fci records)? Report findings @ -Old charts reviewed Differential Diagnosis (chest pain, altered mental status, abdominal pain women, abdominal pain men, vaginal bleeding, weakness, fever, dyspnea, syncope, headache, dizziness, GI bleed, back pain, seizure, CVA, palpatations, mental health, musculoskeletal)? @ -Differential GI Bleed: Esophageal varices, aortoenteric fistula, Ariadna-Lopez, gastritis, peptic ulcer disease, diverticulosis, inflammatory bowel disease, hemorrhoids, fissure, col itis, malignancy, Meckels diverticulum, this is not meant to be an all- inclusive list. EKG interpreted by me (3pts min.). @ -None done X-rays interpreted by me (1pt min.). @ -None done CT interpreted by me (1pt min.). @ -None done U/S interpreted by me (1pt. min.). @ -None done What testing was considered but not performed or refused? (CT, X-rays, U/S, labs)? Why? @ -Considered CT imaging however patient already received CT imaging. What meds were considered but not given or refused? Why? @ -None Did you discuss the management of the patient with other professionals (professionals i.e. ETHEL Rebollar, ELECT[employer] FURNACE OPERATOR, lab, RT, psych nurse, social services assistant, right of way agent, t eacher, air defence officer, trimming caser)? Give summary @ -I discussed the patient with Dr. Miller who did already accept the patient for admission prior to transfer. He still accepted the patient for admission. I did discuss with him that I offered transfer to another facility however patient's family would prefer to be admitted him. He was in agreement with this plan. He requested consult to general surgery as well as IV fluids, repeat labs. This was completed. I spoke with the on-call surgeon, Dr. perry who was in agreement to consult but requested the patient be consulted under Dr. Polo who takes over in the morning. He was in agreement with the plan. Recommended the patient be made nothing by mouth. Was smoking cessation discussed for >3mins.? @ -No Was critical care preformed (if so, how long)? @ -No Were there social determinants of health that impacted care today? How? (Homelessness, low income, unemployed, alcoholism, drug addiction, transportation, low edu. Level, literacy, decrease access to med. care, skilled nursing, rehab)? @ -No Was there de-escalation of care discussed even if they declined (Discuss DNR or withdrawal of care, Hospice)? DNR status @ -No What co-morbidities impacted this encounter? (DM, HTN, Smoking, COPD, CAD, Cancer, CVA, ARF, Chemo, Hep., AIDS, mental health diagnosis, sleep apnea, morbid obesity)? @ -None Was patient admitted / discharged? Hospital course, mention meds given and route, prescriptions, significant lab abnormalities, going to OR and other pertinent info. @ -Based on the patient's presentation and physical exam, was transferred here for admission under Dr. Miller for GI bleed. Suspect upper GI bleed likely secondary to an ulcer she has a history of daily ibuprofen use. Does have a history of this previously. She currently denies any symptoms. He is hemodynamically stable. Labs were remarkable the outside facility for hemoglobin of 8.5. We will repeat labs here. I did discuss with the patient as well as family that we do not have GI services at our facility. I once again did offer transfer to another facility but they would like to be admitted under Dr. Miller. I discussed this with Dr. Miller who was also in agreement with the admission at this time. Recommended starting the patient on IV fluids, and was in agreement with certain the patient on IV Protonix. Requested I consult general surgery. I spoke with Dr. perry who is the covering surgeon who re commended I place the consult under Dr. Polo and is otherwise in agreement with the plan. Would like the patient to remain nothing by mouth. Patient will be admitted to stepdown for further observation. Once again I did offer transfer to a facility with GI services and made patient as well as aware that we do not have GI services available at our facility and therefore there is a risk in keeping the patient at our facility. and we typically do transfer patient's like her to facility with GI services available. They've refused transfer at this time and would like to be admitted under Dr. Miller. Patient's repeat labs here in the department were relatively unchanged. Patient does have an elevated BUN suggestive of upper GI bleed as well as relatively stable hemoglobin, currently 8.3. Was a 8.5 at the other facility. Undiagnosed new problem with uncertain prognosis? @ -No Drug Therapy requiring intensive monitoring for toxicity (Heparin, Nitro, Insulin, Cardizem)? @ -No Were any procedures done? @ -No Diagnosis/symptom? @ -Upper GI bleed, dark tarry stools, anemia Acute, or Chronic, or Acute on Chronic? @ -Acute Uncomplicated (without systemic symptoms) or Complicated (systemic symptoms)? @ -Complicated Side effects of treatment? @ -No Exacerbation, Progression, or Severe Exacerbation? @ -No Poses a threat to life or bodily function? How? (Chest pain, USA, AR, pneumonia, PE, COPD, DKA, ARF, appy, cholecystitis, CVA, Diverticulitis, Homicidal, Suicidal, threat to staff... and all critical care pts) @ -Yes - Lab Data Result diagrams: 11/20/23 23:41 11/20/23 23:41 Disposition Clinical Impression: GI bleed, Black tarry stools, Anemia Disposition: ADMITTED IP TO THIS HOSP Condition: Stable Time of Disposition: 22:30
[2023-11-20 23:58] LABS: Basophils % (A) 0 %; Eosinophils # (A) 0.1 k/uL (0-0.7); Eosinophils % (A) 2 %; HCT 24.7 % (34.0-46.0); HGB 8.3 gm/dL (11.4-16.0); Lymphocytes # (A) 2.1 k/uL (1.0-4.8); Lymphocytes % (A) 22 %; MCH 31.8 pg (25.0-35.0); MCHC 33.4 g/dL (31.0-37.0); MCV 95.3 fL (80.0-100.0); Mean Platelet Volume 7.8; Monocytes # (A) 0.2 k/uL (0-1.0); Monocytes % (A) 2 %; Neutrophils # (A) 6.7 k/uL (1.3-7.7); Neutrophils % (A) 72 %; Platelet Count 322 k/uL (150-450); RBC 2.59 m/uL (3.80-5.40); RDW 12.4 % (11.5-15.5); WBC 9.2 k/uL (3.8-10.6)
[2023-11-21 00:06] LABS: ALT 17 U/L (4-34); AST 22 U/L (14-36); African American GFR (CKD) 88 (>60 ml/min/1.73 sqM); Albumin 3.7 g/dL (3.5-5.0); Alkaline Phosphatase 78 U/L (38-126); Anion Gap 9 mmol/L; Blood Urea Nitrogen 45 mg/dL (7-17); Calcium 9.8 mg/dL (8.4-10.2); Carbon Dioxide 24 mmol/L (22-30); Chloride 104 mmol/L (98-107); Glucose 138 mg/dL (74-99); Lipase 155 U/L (23-300); Non-African American GFR(CKD) 77 (>60 ml/min/1.73 sqM); Potassium 3.5 mmol/L (3.5-5.1); Sodium 137 mmol/L (137-145); Total Bilirubin 0.2 mg/dL (0.2-1.3); Total Protein 6.2 g/dL (6.3-8.2)
[2023-11-21 00:26] LABS: Partial Thromboplastin Time 20.2 sec (22.0-30.0); Prothrombin Time 10.8 sec (10.0-12.5)
[2023-11-21] MEDS ORDERED: PANTOPRAZOLE 40 MG/10 ML VIAL IVP SCH (09:00)
--- NOTE | 2023-11-21 09:23 | P.GSCN ---
History of Present Illness Consult date: 11/21/23 Reason for Consult: Upper GI bleed History of present illness: Patient apparently was transferred to our hospital for GI bleed. We have no GI coverage. When the patient got here apparently they refused further transfer to another institution. She was having black tarry stools for the last 2-3 days. She had a proximally 5-6 bowel movements like this. No hematemesis. Hemoglobin 8.5. Came down to 8.3 here. She apparently had a CAT scan which was negative. She takes NSAIDs daily. No anticoagulation. No significant alcohol use. No history of previous upper GI bleed. Review of Systems The patient denies any acute changes in vision or hearing, no dysphagia or odynophagia, no chest pain or shortness of breath, no dysuria or hematuria, no headache, no runny nose, no unexplained weight loss Past Medical History Past Medical History: Asthma, GI Bleed, Hypertension, Osteoarthritis (OA) Additional Past Medical History / Comment(s): Chronic cervical and back pain, arthritis in spine, reactive asthma, lower GI bleed. History of Any Multi-Drug Resistant Organisms: None Reported Past Surgical History: Breast Surgery, Section, Orthopedic Surgery, Tonsillectomy Additional Past Surgical History / Comment(s): Bilateral breast implants, colonoscopy-normal, cervical to thoracic spinal surgery-has hardware, C-sections x2. Past Anesthesia/Blood Transfusion Reactions: No Reported Reaction Past Psychological History: No Psychological Hx Reported Smoking Status: Former smoker Past Alcohol Use History: Occasional Past Drug Use History: Marijuana - Past Family History Father Family Medical History: Respiratory Disorder Additional Family Medical History / Comment(s): Father had mesothelioma. Mother Family Medical History: Cancer, Vascular Disorder Additional Family Medical History / Comment(s): Mother of a ruptured thoracic/aortic aneurysm at the age of 81 yrs. She had lung cancer. Medications and Allergies Home Medications Medication Instructions Recorded Confirmed Type Acetaminophen [Tylenol] 650 mg PO Q6HR PRN 03/30/18 03/30/18 History Albuterol Sulfate [Proair Hfa] 2 puff INHALATION RT-Q6H PRN 03/30/18 03/30/18 History Biotin 300 mcg PO DAILY 03/30/18 03/30/18 History Vitamin B Complex 1 cap PO DAILY 03/30/18 03/30/18 History Vitamin E 100 unit PO DAILY 03/30/18 03/30/18 History Ciprofloxacin HCl [Cipro] 250 mg PO Q12HR #30 tablet 04/05/18 Rx Baclofen [Lioresal] 10 mg PO TID #0 04/06/18 03/30/18 Rx Allergies Allergy/AdvReac Type Severity Reaction Status Date / Time No Known Allergies Allergy Verified 03/30/18 12:13 Surgical - Exam Vital Signs Temp Pulse Resp BP Pulse Ox 98.6 F 101 H 18 110/81 97 11/20/23 22:06 11/20/23 22:06 11/20/23 22:06 11/20/23 22:06 11/20/23 22:06 Physical exam: General: Well-developed, well-nourished HEENT: Normocephalic, sclerae nonicteric Abdomen: Nontender, nondistended Extremities: No edema Neuro: Alert and oriented Results - Labs 11/20/23 23:41 11/20/23 23:41 Abnormal Lab Results - Last 24 Hours (Table) 11/20/23 11/20/23 11/20/23 Range/Units 23:41 23:41 23:41 RBC 2.59 L (3.80-5.40) m/uL Hgb 8.3 L (11.4-16.0) gm/dL Hct 24.7 L (34.0-46.0) % APTT 20.2 L (22.0-30.0) sec BUN 45 H (7-17) mg/dL Glucose 138 H (74-99) mg/dL Total Protein 6.2 L (6.3-8.2) g/dL Diabetes panel 11/20/23 Range/Units 23:41 Sodium 137 (137-145) mmol/L Potassium 3.5 (3.5-5.1) mmol/L Chloride 104 (98-107) mmol/L Carbon Dioxide 24 (22-30) mmol/L BUN 45 H (7-17) mg/dL Creatinine 0.80 (0.52-1.04) mg/dL Glucose 138 H (74-99) mg/dL Calcium 9.8 (8.4-10.2) mg/dL AST 22 (14-36) U/L ALT 17 (4-34) U/L Alkaline Phosphatase 78 (38-126) U/L Total Protein 6.2 L (6.3-8.2) g/dL Albumin 3.7 (3.5-5.0) g/dL Calcium panel 11/20/23 Range/Units 23:41 Calcium 9.8 (8.4-10.2) mg/dL Albumin 3.7 (3.5-5.0) g/dL Pituitary panel 11/20/23 Range/Units 23:41 Sodium 137 (137-145) mmol/L Potassium 3.5 (3.5-5.1) mmol/L Chloride 104 (98-107) mmol/L Carbon Dioxide 24 (22-30) mmol/L BUN 45 H (7-17) mg/dL Creatinine 0.80 (0.52-1.04) mg/dL Glucose 138 H (74-99) mg/dL Calcium 9.8 (8.4-10.2) mg/dL Adrenal panel 11/20/23 Range/Units 23:41 Sodium 137 (137-145) mmol/L Potassium 3.5 (3.5-5.1) mmol/L Chloride 104 (98-107) mmol/L Carbon Dioxide 24 (22-30) mmol/L BUN 45 H (7-17) mg/dL Creatinine 0.80 (0.52-1.04) mg/dL Glucose 138 H (74-99) mg/dL Calcium 9.8 (8.4-10.2) mg/dL Total Bilirubin 0.2 (0.2-1.3) mg/dL AST 22 (14-36) U/L ALT 17 (4-34) U/L Alkaline Phosphatase 78 (38-126) U/L Total Protein 6.2 L (6.3-8.2) g/dL Albumin 3.7 (3.5-5.0) g/dL Assessment and Plan (1) GI bleed Narrative/Plan: 68-year-old female with upper GI bleed suspected. We'll proceed with EGD at this time. Current Visit: Yes Status: Acute Code(s): K92.2 - GASTROINTESTINAL HEMORRHAGE, UNSPECIFIED SNOMED Code(s): 01942344
[2023-11-21] MEDS ORDERED: PROPOFOL 10 MG/ML 20 ML VIAL IV ONE (10:38)
[2023-11-21] MEDS ORDERED: SODIUM CHLORIDE 0.9% 500 ML 500 ML IV ONE (11:11)
--- NOTE | 2023-11-21 11:15 | P.PCN ---
Date of Procedure: 11/21/23 Procedure(s) Performed: Preoperative Dx: Upper GI bleed Postoperative Dx: Gastric ulcer, gastritis, small hiatal hernia Procedure: EGD Anesthesia: Sedation Endoscopist: Dr. Polo Specimens: None Endoscopic Procedure: The patient was on the endoscopy table in the left decubitus position. The Olympus gastroscope was inserted into the oropharynx and passed under direct visualization to the region of the third portion of the duodenum. From that point the scope was slowly withdrawn inspecting all surface s carefully. There were no neoplastic inflammatory or polypoid lesions throughout the duodenum. The appearance of the prepyloric region suggested possible scarring from previous ulcer disease. The pylorus was patent. The patient had mild gastritis diffusely. The patient had a visible ulcer that measured approximately 2-3 cm in width along the proximal lesser curve. There was a small 5-6 mm superficial ulcer also noted at about that same level anteriorly. Neither of these had evidence of recent or active bleeding. There was bile within the stomach. The patient had a small hiatal hernia. The GE junction was present 1 cm above the diaphragmatic hiatus. The esophagus appear normal. The patient was then taken to the recovery room in stable condition per anesthesia guidelines. Recommendations: Begin full liquid diet. Add Carafate. Etiology for anemia and melanotic stools, certainly from the fairly large gastric ulceration. No active bleeding at this time. Continue to hold NSAID use. Continue twice a day PPI post discharge. Recommend follow-up with GI for repeat EGD in the next 2-3 months.
[2023-11-21] MEDS: SUCRALFATE 1 GM TAB PO SCH ×2 (11:29→16:50)
[2023-11-21 13:39] LABS: Magnesium 1.8 mg/dL (1.6-2.3); Potassium 3.5 mmol/L (3.5-5.1)
[2023-11-21] MEDS ORDERED: ALBUTEROL NEBULIZED 2.5 MG/3 ML INHALATION PRN (13:47)
[2023-11-21] MEDS ORDERED: BACLOFEN 10 MG TAB PO PRN (13:47)
[2023-11-21] MEDS ORDERED: Acetaminophen-Codeine 300-30mg TAB PO PRN (14:10)
[2023-11-21] MEDS: HYDROcodone/APAP 7.5-325MG 1 EACH TAB PO PRN (14:24)
[2023-11-21] MEDS: ESCITALOPRAM 10 MG TAB PO SCH (14:24)
[2023-11-21 15:19] LABS: HCT 20.8 % (34.0-46.0); MCH 32.2 pg (25.0-35.0); MCV 97.6 fL (80.0-100.0); Mean Platelet Volume 7.6; Platelet Count 301 k/uL (150-450); RBC 2.13 m/uL (3.80-5.40); RDW 12.5 % (11.5-15.5); WBC 10.9 k/uL (3.8-10.6)
[2023-11-21 15:28] LABS: HGB 6.9 gm/dL (11.4-16.0)
--- NOTE | 2023-11-21 16:20 | P.HPIM ---
History of Present Illness H&P Date: 11/20/23 Chief Complaint: Dark stools Pleasant [address] Goldberg. Patient's - called me last night and the patient was [facility] to accept the patient to my service here at [facility]. He was informed to GI services were not available in the hospital. I saw the patient in the ER. Her was at the bedside. Patient presented today with episodes of dark stools. Epigastric pain. Feeling weak and tired. Patient had a EGD about a year and a half ago. She has gastritis. Patient does take Motrin daily for her lower back pain. Denied any nausea vomiting. Patient and informed that GI services not available in the hospital. And patient be seen by general surgery. Review of systems: GEN.: Tired EYES: None HEENT: None NECK: None RESPIRATORY: None CARDIOVASCULAR: None GASTROINTESTINAL: As above GENITOURINARY: None MUSCULOSKELETAL: Joint pains LYMPHATICS: None HEMATOLOGICAL: None PSYCHIATRY: None NEUROLOGICAL: None Past medical history to include: Asthma, GI bleed, hypertension, osteoarthritis, chronic arthritis in the spine, bilateral breast implants, Eyes social history: Retired from working at her 's office. Patient smoked from a teenager 2 2010. Alcohol occasionally. .. Patient smoked for close to 40 years. Physical examination: VITAL SIGNS: 98.6, 101, 18, 110/81, 97% room air GENERAL: BMI 20.7, reclining bed awake slightly uncomfortable. EYES: Pupils equal. Conjunctiva palel. HEENT: External appearance of nose and ears normal, oral cavity grossly normal. NECK: JVD not raised; masses not palpable. HEART: First and second heart sounds are normal; no edema. LUNGS: Respiratory rate normal; decreased breath sounds. ABDOMEN: Soft, epigastric tenderness, liver spleen not palpable, no masses palpable. PSYCH: Alert and oriented x3; mood and affect normal. MUSCULOSKELETAL:No Clubbing/cyanosis;muscles-grossly intact. OA in several joints NEUROLOGICAL: Cranial nerves grossly intact; no facial asymmetry, power and sensation grossly intact. LYMPHATICS: No lymph nodes palpable in the axilla and neck INVESTIGATIONS, reviewed in the clinical context: 11/20/2023: White count 9.2 hemoglobin 8.3 platelets 322 potassium 3.5 BUN 45 creatinine 0.8 Assessment and plan: -Acute GI bleed suspected to be upper with patient having dark stools and epigastric tenderness. Suspect peptic ulcer disease from the use of NSAIDs. Patient has a previous EEG that shows gastritis. PPI. Ice chips. Consult surgery for EGD. Stop NSAIDs -Primary osteoarthritis multiple joints including special he lower back Stop NSAIDs. Use Tylenol/[place] as patient uses at home -COPD in a prior smoker Albuterol when necessary -Depression Lexapro 10 mg a day -Essential hypertension Patient on Coreg and hydrochlorothiazide. Follow blood pressure closely -Muscle spasm Baclofen Surgery consulted. Follow H&H. Stop NSAIDs. PPI. Discussed with patient and . Past Medical History Past Medical History: Asthma, GI Bleed, Hypertension, Osteoarthritis (OA) Additional Past Medical History / Comment(s): Chronic cervical and back pain, arthritis in spine, reactive asthma, lower GI bleed. History of Any Multi-Drug Resistant Organisms: None Reported Past Surgical History: Breast Surgery, Section, Orthopedic Surgery, Tonsillectomy Additional Past Surgical History / Comment(s): Bilateral breast implants, colonoscopy-normal, cervical to thoracic spinal surgery-has hardware, C-sections x2. Past Anesthesia/Blood Transfusion Reactions: No Reported Reaction Past Psychological History: No Psychological Hx Reported Smoking Status: Former smoker Past Alcohol Use History: Occasional Past Drug Use History: Marijuana - Past Family History Father Family Medical History: Respiratory Disorder Additional Family Medical History / Comment(s): Father had mesothelioma. Mother Family Medical History: Cancer, Vascular Disorder Additional Family Medical History / Comment(s): Mother of a ruptured thoracic/aortic aneurysm at the age of 81 yrs. She had lung cancer. Medications and Allergies Home Medications Medication Instructions Recorded Confirmed Type Acetaminophen [Tylenol] 325 mg PO TID PRN 03/30/18 11/21/23 History Albuterol Sulfate [Proair Hfa] 2 puff INHALATION RT-Q6H PRN 03/30/18 11/21/23 History Vitamin B Complex 1 cap PO DAILY 03/30/18 11/21/23 History Vitamin E 400 unit PO DAILY 03/30/18 11/21/23 History Baclofen [Lyvispah] 20 mg PO QID PRN 11/21/23 11/21/23 History Ergocalciferol (Vitamin D2) 1,250 mcg PO WE 11/21/23 11/21/23 History [Drisdol (50,000 Iu)] Escitalopram [Lexapro] 10 mg PO DAILY 11/21/23 11/21/23 History HYDROcodone/APAP 7.5-325MG [[place] 1 tab PO BID PRN 11/21/23 11/21/23 History 7.5-325] Ibuprofen [Motrin] 800 mg PO Q8H PRN 11/21/23 11/21/23 History Omeprazole [PriLOSEC] 20 mg PO AC-BID #90 cap 11/21/23 Rx Romosozumab-Aqqg [Evenity] 2 dose SQ Q30D 11/21/23 11/21/23 History Sucralfate [Carafate] 1 gm PO ACHS #120 tab 11/21/23 Rx Viviscal Hair Growth Supplement 1 tab PO DAILY 11/21/23 11/21/23 History carvediloL [Coreg] 12.5 mg PO BID 11/21/23 11/21/23 History hydroCHLOROthiazide [Hydrodiuril] 12.5 mg PO DAILY 11/21/23 11/21/23 History Allergies Allergy/AdvReac Type Severity Reaction Status Date / Time No Known Allergies Allergy Verified 11/21/23 13:40 Physical Exam Vitals: Vital Signs Temp Pulse Pulse Resp BP BP Pulse Ox 11/21/23 15:23 104 H 15 102/71 96 11/21/23 11:28 98.0 F 94 16 101/71 99 11/21/23 08:04 97 11/21/23 07:57 98.6 F 97 16 108/72 97 11/21/23 04:24 87 16 111/73 95 11/21/23 02:00 94 11/21/23 01:21 98.4 F 94 14 117/79 98 11/20/23 23:50 102 H 18 104/75 98 11/20/23 22:06 98.6 F 101 H 18 110/81 97 Intake and Output 11/21/23 11/21/23 11/21/23 06:59 14:59 22:59 Intake Total 375 680 Balance 375 680 Intake: IV 200 Intake, IV Titration 375 Amount Sodium Chloride 0.9% 1, 375 000 ml @ 75 mls/hr IV . [id number] STA Rx#:[id number] Oral 480 Other: Voiding Method Toilet Toilet Weight 48.081 kg Results CBC & Chem 7: 11/21/23 14:20 11/21/23 13:09 Labs: Abnormal Lab Results - Last 24 Hours (Table) 11/20/23 11/20/23 11/20/23 Range/Units 23:15 23:41 23:41 WBC (3.8-10.6) k/uL RBC 2.59 L (3.80-5.40) m/uL Hgb 8.3 L (11.4-16.0) gm/dL Hct 24.7 L (34.0-46.0) % APTT 20.2 L (22.0-30.0) sec BUN (7-17) mg/dL Glucose (74-99) mg/dL Total Protein (6.3-8.2) g/dL Crossmatch See Detail 11/20/23 11/21/23 Range/Units 23:41 14:20 WBC 10.9 H (3.8-10.6) k/uL RBC 2.13 L (3.80-5.40) m/uL Hgb 6.9 L* (11.4-16.0) gm/dL Hct 20.8 L (34.0-46.0) % APTT (22.0-30.0) sec BUN 45 H (7-17) mg/dL Glucose 138 H (74-99) mg/dL Total Protein 6.2 L (6.3-8.2) g/dL Crossmatch Thrombosis Risk Factor Assmnt - Choose All That Apply Any of the Below Risk Factors Present?: No Other Risk Factors: Yes Each Risk Factor Represents 2 Points: Age 61-74 years Other congenital or acquired thrombophilia - If yes, enter type in comment: No Thrombosis Risk Factor Assessment Total Risk Factor Score: 2 Thrombosis Risk Factor Assessment Level: Low Risk
[2023-11-21 16:33] VITALS: RESP 16
[2023-11-21] MEDS: PANTOPRAZOLE 40 MG TABLET PO SCH (16:50)
--- NOTE | 2023-11-21 16:51 | P.PN ---
Progress Note - Text Progress Note Date: 11/21/23 Chief Complaint: Dark stools Pleasant [address] Goldberg. Patient's - called me last night and the patient was [facility] to accept the patient to my service here at [facility]. He was informed to GI services were not available in the hospital. I saw the patient in the ER. Her was at the bedside. Patient presented today with episodes of dark stools. Epigastric pain. Feeling weak and tired. Patient had a EGD about a year and a half ago. She has gastritis. Patient does take Motrin daily for her lower back pain. Denied any nausea vomiting. Patient and informed that GI services not available in the hospital. And patient be seen by general surgery. 11/21/2028: Patient underwent EGD by Dr. Polo this morning. Found to have gastric ulcer. Continue on PPI. Discussed with the patient has been at the bedside. Patient does feel a bit tired. Repeat hemoglobin came back at 6.9. 1 unit of blood ordered. Active Medications Acetaminophen/Codeine Phosphate (Acetaminophen-Codeine 300-30mg Tab) 1 each PO Q6HR PRN PRN Reason: Pain Hydrocodone Bitart/Acetaminophen (Hydrocodone/Apap 7.5-325mg 1 Each Tab) 1 each PO BID PRN PRN Reason: Pain Last Admin: 11/21/23 14:24 Dose: 1 each Albuterol Sulfate (Albuterol Nebulized 2.5 Mg/3 Ml) 2.5 mg INHALATION RT-Q6H PRN PRN Reason: Shortness Of Breath Baclofen (Baclofen 10 Mg Tab) 20 mg PO QID PRN PRN Reason: Muscle Pain Escitalopram Oxalate (Escitalopram 10 Mg Tab) 10 mg PO DAILY RVEA Last Admin: 11/21/23 14:24 Dose: 10 mg Naloxone HCl (Naloxone 0.4 Mg/Ml 1 Ml Vial) 0.2 mg IV Q2M PRN PRN Reason: Opioid Reversal Ondansetron HCl (Ondansetron 4 Mg/2 Ml Vial) 4 mg IVP Q6HR PRN PRN Reason: Nausea And Vomiting Last Admin: 11/21/23 01:42 Dose: 4 mg Pantoprazole Sodium (Pantoprazole 40 Mg Tablet) 40 mg PO AC-BID [facility] Sucralfate (Sucralfate 1 Gm Tab) 1 gm PO AC-TID [facility] Last Admin: 11/21/23 11:29 Dose: 1 gm Past medical history to include: Asthma, GI bleed, hypertension, osteoarthritis, chronic arthritis in the spine, bilateral breast implants, Eyes social history: Retired from working at her 's office. Patient smoked from a teenager 2 2010. Alcohol occasionally. .. Patient smoked for close to 40 years. Physical examination: VITAL SIGNS: 88.7, 94, 16, 108/69, 97% room air GENERAL: Reclining in bed awake EYES: Pupils equal. Conjunctiva pale HEENT: External appearance of nose and ears normal, oral cavity grossly normal. NECK: JVD not raised; masses not palpable. HEART: First and second heart sounds are normal; no edema. LUNGS: Respiratory rate normal; decreased breath sounds. ABDOMEN: Soft, no epigastric tenderness, liver spleen not palpable, no masses palpable. PSYCH: Alert and oriented x3; mood and affect normal. MUSCULOSKELETAL:No Clubbing/cyanosis;muscles-grossly intact. OA in several joints INVESTIGATIONS, reviewed in the clinical context: 11/21/2023: White count 10.9 hemoglobin 6.9 platelets 301 11/20/2023: White count 9.2 hemoglobin 8.3 platelets 322 potassium 3.5 BUN 45 creatinine 0.8 Assessment and plan: -Acute GI bleed suspected to be upper with patient having dark stools and epigastric tenderness. From gastric ulcer secondary to NSAID PPI. Patient underwent EGD by Dr. Polo today. -Acute blood loss anemia secondary to gastric ulcer bleed Transfuse 1 unit of blood for hemoglobin of 6.9 -Primary osteoarthritis multiple joints including special he lower back Stop NSAIDs. Use Tylenol/[place] as patient uses at home -COPD in a prior smoker Albuterol when necessary -Depression Lexapro 10 mg a day -Essential hypertension Antihypertensives currently held because of blood pressure running on the lower side. -Muscle spasm Baclofen 1 unit of blood ordered. Discussed with patient . Follow Past Medical History Past Medical History: Asthma, GI Bleed, Hypertension, Osteoarthritis (OA) Additional Past Medical History / Comment(s): Chronic cervical and back pain, arthritis in spine, reactive asthma, lower GI bleed. History of Any Multi-Drug Resistant Organisms: None Reported Past Surgical History: Breast Surgery, Section, Orthopedic Surgery, Tonsillectomy Additional Past Surgical History / Comment(s): Bilateral breast implants, colonoscopy-normal, cervical to thoracic spinal surgery-has hardware, C-sections x2. Past Anesthesia/Blood Transfusion Reactions: No Reported Reaction Past Psychological History: No Psychological Hx Reported Smoking Status: Former smoker Past Alcohol Use History: Occasional Past Drug Use History: Marijuana
--- NOTE | 2023-11-21 18:50 | P.CRDCN ---
History of Present Illness Consult date: 11/21/23 History of present illness: HISTORY OF PRESENTING ILLNESS Patient is a 68-year-old female with no significant past medical history. Patient reports that she has been consuming ibuprofen for her chronic back pain. This time she present to the hospital because of black tarry stools for last 2- 3 days. On admission she had a hemoglobin of 8.5 which dropped to 6. She had upper GI endoscopy done which showed gastric ulcers. During her hospital stay she had runs of supraventricular tachycardia was on telemetry. Patient denies any prior history of atrial fibrillation or any other supra ventricular rhythms. REVIEW OF SYSTEMS 14 point review of system is negative except what is mentioned above in HPI. PHYSICAL EXAMINATION Vital signs reviewed. Head: Normocephalic. Eyes: Sclerae nonicteric. Neck: Brisk carotid upstroke, no jugular venous distention. Lungs: Clear to auscultation. Heart: Regular rate and rhythm, S1-S2, no S3, no murmur or rub. Abdomen: Soft nontender, positive bowel sounds no organomegaly. Extremities: No edema, intact distal pulses. Neuro: Alert, oritented, no focal deficits ASSESSMENT Paroxysmal Supra ventricular tachycardia likely due to anemia Symptomatic anemia GI bleeding due to ibuprofen use Gastric ulcer Chronic back pain PLAN Obtain ECG and obtain echocardiogram Start metoprolol 25 mg twice a day Patient would benefit from a 14 day event monitor to go home with. She can apple picker a heart monitor from cardiology clinic. I will try to set it up for her. Outpatient follow-up with Dr. Robles If patient does not have any further rhythms of supraventricular tachycardia and patient's blood pressure stable, she is cleared to be discharged from cardiac standpoint. If echocardiogram could not be obtained, we will obtain an as an outpatient Past Medical History Past Medical History: Asthma, GI Bleed, Hypertension, Osteoarthritis (OA) Additional Past Medical History / Comment(s): Chronic cervical and back pain, arthritis in spine, reactive asthma, lower GI bleed. History of Any Multi-Drug Resistant Organisms: None Reported Past Surgical History: Breast Surgery, Section, Orthopedic Surgery, Tonsillectomy Additional Past Surgical History / Comment(s): Bilateral breast implants, colonoscopy-normal, cervical to thoracic spinal surgery-has hardware, C-sections x2. Past Anesthesia/Blood Transfusion Reactions: No Reported Reaction Past Psychological History: No Psychological Hx Reported Smoking Status: Former smoker Past Alcohol Use History: Occasional Past Drug Use History: Marijuana - Past Family History Father Family Medical History: Respiratory Disorder Additional Family Medical History / Comment(s): Father had mesothelioma. Mother Family Medical History: Cancer, Vascular Disorder Additional Family Medical History / Comment(s): Mother of a ruptured thoracic/aortic aneurysm at the age of 81 yrs. She had lung cancer. Medications and Allergies Home Medications Medication Instructions Recorded Confirmed Type Acetaminophen [Tylenol] 325 mg PO TID PRN 03/30/18 11/21/23 History Albuterol Sulfate [Proair Hfa] 2 puff INHALATION RT-Q6H PRN 03/30/18 11/21/23 History Vitamin B Complex 1 cap PO DAILY 03/30/18 11/21/23 History Vitamin E 400 unit PO DAILY 03/30/18 11/21/23 History Baclofen [Lyvispah] 20 mg PO QID PRN 11/21/23 11/21/23 History Ergocalciferol (Vitamin D2) 1,250 mcg PO WE 11/21/23 11/21/23 History [Drisdol (50,000 Iu)] Escitalopram [Lexapro] 10 mg PO DAILY 11/21/23 11/21/23 History HYDROcodone/APAP 7.5-325MG [[place] 1 tab PO BID PRN 11/21/23 11/21/23 History 7.5-325] Ibuprofen [Motrin] 800 mg PO Q8H PRN 11/21/23 11/21/23 History Omeprazole [PriLOSEC] 20 mg PO AC-BID #90 cap 11/21/23 Rx Romosozumab-Aqqg [Evenity] 2 dose SQ Q30D 11/21/23 11/21/23 History Sucralfate [Carafate] 1 gm PO ACHS #120 tab 11/21/23 Rx Viviscal Hair Growth Supplement 1 tab PO DAILY 11/21/23 11/21/23 History carvediloL [Coreg] 12.5 mg PO BID 11/21/23 11/21/23 History hydroCHLOROthiazide [Hydrodiuril] 12.5 mg PO DAILY 11/21/23 11/21/23 History Allergies Allergy/AdvReac Type Severity Reaction Status Date / Time No Known Allergies Allergy Verified 11/21/23 13:40 Physical Exam Vitals: Vital Signs Temp Pulse Pulse Resp BP BP Pulse Ox 11/21/23 18:45 86 16 103/75 97 11/21/23 18:38 86 16 103/75 97 11/21/23 16:44 92 16 104/71 99 11/21/23 16:24 94 16 99/66 97 11/21/23 16:23 94 16 99/66 97 11/21/23 16:14 98.7 F 94 16 108/69 97 11/21/23 15:23 104 H 15 102/71 96 11/21/23 11:28 98.0 F 94 16 101/71 99 11/21/23 08:04 97 11/21/23 07:57 98.6 F 97 16 108/72 97 11/21/23 04:24 87 16 111/73 95 11/21/23 02:00 94 11/21/23 01:21 98.4 F 94 14 117/79 98 11/20/23 23:50 102 H 18 104/75 98 11/20/23 22:06 98.6 F 101 H 18 110/81 97 Intake and Output 11/21/23 11/21/23 11/21/23 06:59 14:59 22:59 Intake Total 375 680 428 Balance 375 680 428 Intake: IV 200 Intake, IV Titration 375 Amount Sodium Chloride 0.9% 1, 375 000 ml @ 75 mls/hr IV . [id number] STA Rx#:[id number] Oral 480 118 Blood Product 310 Rc As-1 Unit 310 [id number] Other: Voiding Method Toilet Toilet Weight 48.081 kg Results 11/21/23 14:20 11/21/23 13:09 Cardiac Enzymes 11/20/23 Range/Units 23:41 AST 22 (14-36) U/L Coagulation 11/20/23 Range/Units 23:41 PT 10.8 (10.0-12.5) sec APTT 20.2 L (22.0-30.0) sec CBC 11/20/23 11/21/23 Range/Units 23:41 14:20 WBC 9.2 10.9 H (3.8-10.6) k/uL RBC 2.59 L 2.13 L (3.80-5.40) m/uL Hgb 8.3 L 6.9 L* (11.4-16.0) gm/dL Hct 24.7 L 20.8 L (34.0-46.0) % Plt Count 322 301 (150-450) k/uL Comprehensive Metabolic Panel 11/20/23 11/21/23 Range/Units 23:41 13:09 Sodium 137 (137-145) mmol/L Potassium 3.5 3.5 (3.5-5.1) mmol/L Chloride 104 (98-107) mmol/L Carbon Dioxide 24 (22-30) mmol/L BUN 45 H (7-17) mg/dL Creatinine 0.80 (0.52-1.04) mg/dL Glucose 138 H (74-99) mg/dL Calcium 9.8 (8.4-10.2) mg/dL AST 22 (14-36) U/L ALT 17 (4-34) U/L Alkaline Phosphatase 78 (38-126) U/L Total Protein 6.2 L (6.3-8.2) g/dL Albumin 3.7 (3.5-5.0) g/dL Current Medications Generic Name Dose Route Start Last Admin Trade Name Freq PRN Reason Stop Dose Admin Acetaminophen/Codeine Phosphate 1 each 11/21/23 14:10 Acetaminophen-Codeine 300-30mg Tab PO Q6HR PRN Pain Hydrocodone Bitart/Acetaminophen 1 each 11/21/23 13:47 11/21/23 14:24 Hydrocodone/Apap 7.5-325mg 1 Each Tab PO 1 each BID PRN Administration Pain Albuterol Sulfate 2.5 mg 11/21/23 13:47 Albuterol Nebulized 2.5 Mg/3 Ml INHALATION RT-Q6H PRN Shortness Of Breath Baclofen 20 mg 11/21/23 13:47 Baclofen 10 Mg Tab PO QID PRN Muscle Pain Escitalopram Oxalate 10 mg 11/21/23 14:30 11/21/23 14:24 Escitalopram 10 Mg Tab PO 10 mg DAILY REVA Administration Metoprolol Tartrate 25 mg 11/21/23 21:00 Metoprolol Tartrate 25 Mg Tab PO BID REVA Naloxone HCl 0.2 mg 11/20/23 22:36 Naloxone 0.4 Mg/Ml 1 Ml Vial IV Q2M PRN Opioid Reversal Ondansetron HCl 4 mg 11/20/23 22:35 11/21/23 01:42 Ondansetron 4 Mg/2 Ml Vial IVP 4 mg Q6HR PRN Administration Nausea And Vomiting Pantoprazole Sodium 40 mg 11/21/23 17:30 11/21/23 16:50 Pantoprazole 40 Mg Tablet PO 40 mg AC-BID REVA Administration Sucralfate 1 gm 11/21/23 12:30 11/21/23 16:50 Sucralfate 1 Gm Tab PO 1 gm AC-TID REVA Administration Intake and Output 11/21/23 11/21/23 11/21/23 06:59 14:59 22:59 Intake Total 375 680 428 Balance 375 680 428 Intake: IV 200 Intake, IV Titration 375 Amount Sodium Chloride 0.9% 1, 375 000 ml @ 75 mls/hr IV . [id number] STA Rx#:[id number] Oral 480 118 Blood Product 310 Rc As-1 Unit 310 [id number] Other: Voiding Method Toilet Toilet Weight 48.081 kg 11/21/23 14:20 11/21/23 13:09
[2023-11-21] MEDS: METOPROLOL TARTRATE 25 MG TAB PO SCH (20:18)
[2023-11-22] MEDS: PANTOPRAZOLE 40 MG TABLET PO SCH (06:34)
[2023-11-22] MEDS: SUCRALFATE 1 GM TAB PO SCH ×2 (06:34→12:32)
[2023-11-22] MEDS: ESCITALOPRAM 10 MG TAB PO SCH (08:44)
[2023-11-22] MEDS: METOPROLOL TARTRATE 25 MG TAB PO SCH (08:44)
[2023-11-22 09:11] LABS: Basophils # (A) 0.1 k/uL (0-0.2); Basophils % (A) 1 %; Eosinophils # (A) 0.1 k/uL (0-0.7); Eosinophils % (A) 2 %; HCT 27.8 % (34.0-46.0); Hypochromasia Slight; Lymphocytes % (A) 39 %; MCH 32.2 pg (25.0-35.0); MCHC 32.5 g/dL (31.0-37.0); MCV 99.1 fL (80.0-100.0); Mean Platelet Volume 8.3; Monocytes # (A) 0.4 k/uL (0-1.0); Monocytes % (A) 5 %; Neutrophils # (A) 4.1 k/uL (1.3-7.7); Neutrophils % (A) 52 %; Platelet Count 309 k/uL (150-450); RBC 2.81 m/uL (3.80-5.40); WBC 7.8 k/uL (3.8-10.6)
--- NOTE | 2023-11-22 12:39 | P.PN ---
Subjective Progress Note Date: 11/22/23 Principal diagnosis: Gastric ulcer Patient doing well today. No melanotic stools. No rectal bleeding. No abdominal pain. Hemoglobin stable at 9.0. Was given one unit of blood yesterday. Objective - Vital Signs Vital signs: Vital Signs Temp 98 F 11/22/23 12:30 Pulse 73 11/22/23 12:30 Resp 16 11/22/23 12:30 BP 111/71 11/22/23 12:30 Pulse Ox 100 11/22/23 12:30 FiO2 Intake & Output 11/21/23 11/22/23 11/22/23 18:59 06:59 18:59 Intake Total 1108 225 Balance 1108 225 Intake: IV 200 Oral 598 225 Blood Product 310 Rc As-1 Unit 310 [id number] Other: Voiding Method Toilet Toilet Toilet # Voids 1 - Exam Abdomen: Soft, nontender, nondistended - Labs CBC & Chem 7: 11/22/23 08:02 11/21/23 13:09 Labs: Abnormal Lab Results - Last 24 Hours (Table) 11/20/23 11/21/23 11/22/23 Range/Units 23:15 14:20 08:02 WBC 10.9 H (3.8-10.6) k/uL RBC 2.13 L 2.81 L (3.80-5.40) m/uL Hgb 6.9 L* 9.0 L D (11.4-16.0) gm/dL Hct 20.8 L 27.8 L (34.0-46.0) % Crossmatch See Detail Assessment and Plan (1) GI bleed Narrative/Plan: Patient doing well at this time. May discharge. Continue antiacids. Follow-up with myself or GI after discharge. Current Visit: Yes Status: Acute Code(s): K92.2 - GASTROINTESTINAL HEMORRHAGE, UNSPECIFIED SNOMED Code(s): 74948169
[2023-11-22] MEDS: HYDROcodone/APAP 7.5-325MG 1 EACH TAB PO PRN (14:39)
[2023-11-22 16:58] VITALS: BP 111/71; PULSE 73; TEMP 98
--- NOTE | 2023-11-22 17:08 | CA ---
Transthoracic Echo Report Name: Miri Grimaldo Age: 68 Gender: F : 1955 Exam Date: 11/22/2023 13:00 Exam Location: [place] [facility] Ht (in): 60 Wt (lb): 106 Ordering Physician: Lionel Robles MD ([id number]) Attending/Referring Phys: Steel Detailer Mckenzie Samaniego RDCS Procedure CPT: Indications: svt Cardiac Hx: Technical Quality: Fair Contrast 1: Total Dose (mL): Contrast 2: Total Dose (mL): MEASUREMENTS (Male / Female) Normal Values 2D ECHO LV Diastolic Diameter PLAX 3.5 cm 4.2 - 5.9 / 3.9 - 5.3 cm LV Systolic Diameter PLAX 2.3 cm IVS Diastolic Thickness 1.0 cm 0.6 - 1.0 / 0.6 - 0.9 cm LVPW Diastolic Thickness 1.0 cm 0.6 - 1.0 / 0.6 - 0.9 cm LV Relative Wall Thickness 0.6 RV Internal Dim ED PLAX 2.8 cm LA Systolic Diameter LX 3.3 cm 3.0 - 4.0 / 2.7 - 3.8 cm LV Diastolic Volume MOD BP 43.9 cm??? 67 - 155 / 56 - 104 cm??? LV Systolic Volume MOD BP 15.2 cm??? 22 - 58 / 19 - 49 cm??? LV Ejection Fraction MOD BP 65.3 % >= 55 % LV Cardiac Index MOD BP 1282.9 cm???/min???m??? LV Diastolic Volume MOD 4C 48.9 cm??? LV Systolic Volume MOD 4C 20.7 cm??? LV Ejection Fraction MOD 4C 57.7 % LV Cardiac Index MOD 4C 1264.9 cm???/min???m??? LV Diastolic Length 4C 6.5 cm LV Systolic Length 4C 5.5 cm LV Diastolic Volume MOD 2C 36.9 cm??? LV Systolic Volume MOD 2C 11.2 cm??? LV Ejection Fraction MOD 2C 69.6 % LV Cardiac Index MOD 2C 1148.6 cm???/min???m??? LV Diastolic Length 2C 6.0 cm LV Systolic Length 2C 5.4 cm LA Volume 40.6 cm??? 18 - 58 / 22 - 52 cm??? LA Volume Index 28.5 cm???/m??? 16 - 28 cm???/m??? M-MODE Aortic Root Diameter MM 3.6 cm MV E Point Septal Separation 0.3 cm AV Cusp Separation MM 2.9 cm DOPPLER AV Peak Velocity 104.7 cm/s AV Peak Gradient 4.4 mmHg MV Area PHT 3.4 cm??? Mitral E Point Velocity 97.5 cm/s Mitral A Point Velocity 81.9 cm/s Mitral E to A Ratio 1.2 MV Deceleration Time 221.6 ms FINDINGS Left Ventricle Normal LV cavity size. Left ventricular ejection fraction is estimated at 50- 55 %. Mild concentric LVH. No obvious regional wall motion abnormality Right Ventricle Normal LV size and systolic function. Right Atrium Normal right atrial size. Left Atrium Normal left atrial size. Mitral Valve Structurally normal mitral valve. Trace mitral regurgitation. Aortic Valve Trileaflet aortic valve. No aortic valve stenosis or regurgitation. Tricuspid Valve Structurally normal tricuspid valve. No tricuspid regurgitation. Pulmonic Valve Structurally normal pulmonic valve. No pulmonic regurgitation. Pericardium No pericardial effusion. Aorta Normal size aortic root and proximal ascending aorta. CONCLUSIONS Normal LV cavity size. Mild concentric LVH No obvious regional wall motion abnormality LVEF estimated at 50-55% Normal LV size and systolic function No significant chamber size abnormality No significant valvular dysfunction Previewed by: Dr Lionel Robles (Electronically Signed) Final Date: 22 November 2023 17:07
--- NOTE | 2023-11-22 19:21 | P.DS ---
Providers Date of admission: 11/20/23 23:03 Expected date of discharge: 11/22/23 Attending physician: Andrea Miller Consults: 11/20/23 22:36 Consult Physician Routine Consulting Provider: Ke Polo Consult Reason/Comments: gi bleed Do you want consulting provider notified?: Yes 11/21/23 11:18 Consult Physician Routine Consulting Provider: Tom Traylor Consult Reason/Comments: svt Do you want consulting provider notified?: Yes Primary care physician: Bill Goldberg MD Hospital Course: Chief Complaint: Dark stools Pleasant [address] Goldberg. Patient's - called me last night and the patient was [facility] to accept the patient to my service here at [facility]. He was informed to GI services were not available in the hospital. I saw the patient in the ER. Her was at the bedside. Patient presented today with episodes of dark stools. Epigastric pain. Feeling weak and tired. Patient had a EGD about a year and a half ago. She has gastritis. Patient does take Motrin daily for her lower back pain. Denied any nausea vomiting. Patient and informed that GI services not available in the hospital. And patient be seen by general surgery. 11/21/2023: Patient underwent EGD by Dr. Polo this morning. Found to have gastric ulcer. Continue on PPI. Discussed with the patient has been at the bedside. Patient does feel a bit tired. Repeat hemoglobin came back at 6.9. 1 unit of blood ordered. 11/22/2023. Well. Feeling rather good. Up and about. Tolerating a full liquid diet. Discussed with the patient and the . Advance diet gradually. Cleared by Dr. Polo. Patient's blood pressure medication discussed. Had a short run of nonsustained SVT. Being discharged on a small dose of Toprol-XL. Hydrochlorothiazide discontinued. Questions answered. Follow-up with Dr. Polo. No NSAIDs Discussion and discharge planning more than 35 minutes Past medical history to include: Asthma, GI bleed, hypertension, osteoarthritis, chronic arthritis in the spine, bilateral breast implants, Eyes social history: Retired from working at her 's office. Patient smoked from a teenager 2 2010. Alcohol occasionally. .. Patient smoked for close to 40 years. Physical examination: VITAL SIGNS: 98, 73, 16, 111 x 71, 100% room air GENERAL: Reclining in bed awake EYES: Pupils equal. Conjunctiva pale HEENT: External appearance of nose and ears normal, oral cavity grossly normal. NECK: JVD not raised; masses not palpable. HEART: First and second heart sounds are normal; no edema. LUNGS: Respiratory rate normal; decreased breath sounds. ABDOMEN: Soft, no epigastric tenderness, liver spleen not palpable, no masses palpable. PSYCH: Alert and oriented x3; mood and affect normal. MUSCULOSKELETAL:No Clubbing/cyanosis;muscles-grossly intact. OA in several joints INVESTIGATIONS, reviewed in the clinical context: 11/22/2023: White count 7.8 hemoglobin 9 platelets 309 11/21/2023: White count 10.9 hemoglobin 6.9 platelets 301 11/20/2023: White count 9.2 hemoglobin 8.3 platelets 322 potassium 3.5 BUN 45 creatinine 0.8 Assessment and plan: -Acute GI bleed suspected to be upper with patient having dark stools and epigastric tenderness. From gastric ulcer secondary to NSAID PPI. EGD by Dr. Polo . -Acute blood loss anemia secondary to gastric ulcer bleed Transfuse 1 unit of blood for hemoglobin of 6.9 -Primary osteoarthritis multiple joints including low lower back no NSAIDs. Use Tylenol/Vining as patient uses at home -COPD in a prior smoker Albuterol when necessary -Depression Lexapro 10 mg a day -Essential hypertension Toprol XL 25 mg a day. Hydrochlorothiazide discontinued -Muscle spasm Baclofen Disposition: Home Labs: CBC in 3 days Past Medical History Past Medical History: Asthma, GI Bleed, Hypertension, Osteoarthritis (OA) Additional Past Medical History / Comment(s): Chronic cervical and back pain, arthritis in spine, reactive asthma, lower GI bleed. History of Any Multi-Drug Resistant Organisms: None Reported Past Surgical History: Breast Surgery, Section, Orthopedic Surgery, Tonsillectomy Additional Past Surgical History / Comment(s): Bilateral breast implants, colonoscopy-normal, cervical to thoracic spinal surgery-has hardware, C-sections x2. Past Anesthesia/Blood Transfusion Reactions: No Reported Reaction Past Psychological History: No Psychological Hx Reported Smoking Status: Former smoker Past Alcohol Use History: Occasional Past Drug Use History: Marijuana Plan - Discharge Summary Discharge Rx Participant: No New Discharge Prescriptions: New Sucralfate [Carafate] 1 gm PO ACHS #120 tab Metoprolol Succinate (ER) [Toprol XL] 25 mg PO DAILY #30 tab Omeprazole [PriLOSEC] 20 mg PO AC-BID #90 cap Continue Vitamin E 400 unit PO DAILY Vitamin B Complex 1 cap PO DAILY Acetaminophen [Tylenol] 325 mg PO TID PRN PRN Reason: Pain Albuterol Sulfate [Proair Hfa] 2 puff INHALATION RT-Q6H PRN PRN Reason: Shortness Of Breath Baclofen [Lyvispah] 20 mg PO QID PRN PRN Reason: Muscle Pain Viviscal Hair Growth Supplement 1 tab PO DAILY Romosozumab-Aqqg [Evenity] 2 dose SQ Q30D HYDROcodone/APAP 7.5-325MG [Vining 7.5-325] 1 tab PO BID PRN PRN Reason: Pain Escitalopram [Lexapro] 10 mg PO DAILY Ergocalciferol (Vitamin D2) [Drisdol (50,000 Iu)] 1,250 mcg PO WE Discontinued Baclofen [Lioresal] 10 mg PO TID #0 hydroCHLOROthiazide [Hydrodiuril] 12.5 mg PO DAILY Ibuprofen [Motrin] 800 mg PO Q8H PRN PRN Reason: Pain Or Fever > 100.5 carvediloL [Coreg] 12.5 mg PO BID Discharge Medication List Acetaminophen [Tylenol] 325 mg PO TID PRN 03/30/18 [History] Albuterol Sulfate [Proair Hfa] 2 puff INHALATION RT-Q6H PRN 03/30/18 [History] Vitamin B Complex 1 cap PO DAILY 03/30/18 [History] Vitamin E 400 unit PO DAILY 03/30/18 [History] Baclofen [Lyvispah] 20 mg PO QID PRN 11/21/23 [History] Ergocalciferol (Vitamin D2) [Drisdol (50,000 Iu)] 1,250 mcg PO WE 11/21/23 [History] Escitalopram [Lexapro] 10 mg PO DAILY 11/21/23 [History] HYDROcodone/APAP 7.5-325MG [Vining 7.5-325] 1 tab PO BID PRN 11/21/23 [History] Omeprazole [PriLOSEC] 20 mg PO AC-BID #90 cap 11/21/23 [Rx] Romosozumab-Aqqg [Evenity] 2 dose SQ Q30D 11/21/23 [History] Sucralfate [Carafate] 1 gm PO ACHS #120 tab 11/21/23 [Rx] Viviscal Hair Growth Supplement 1 tab PO DAILY 11/21/23 [History] Metoprolol Succinate (ER) [Toprol XL] 25 mg PO DAILY #30 tab 11/22/23 [Rx] Follow up Appointment(s)/Referral(s): Bill Goldberg MD [Primary Care Provider] - 1-2 days Maria G Traylor MD [STAFF PHYSICIAN] - 3 Weeks Patient Instructions/Handouts: Gastrointestinal Bleeding (DC) Discharge Disposition: HOME SELF-CARE
[2023-11-23] MEDS ORDERED: METOPROLOL SUCCINATE (ER) 25 MG TAB.ER.24H PO SCH (09:00)
== END 2023-11-22 16:26 | disposition home or self-care (01) | DRG 378 ==
LOC: EC 21:59 → 3SCARD 23:03
PROVIDERS: ADMIT Hospitalist; ATTEND Hospitalist
PROC: 0DJ08ZZ Inspection of Upper Intestinal Tract, Via Natural or Artificial Opening Endoscopic (ICD-10-PCS; principal; 2023-11-20)
DX: K25.4 Chronic or unspecified gastric ulcer with hemorrhage (principal); D62 Acute posthemorrhagic anemia; I47.19 Other supraventricular tachycardia; K44.9 Diaphragmatic hernia without obstruction or gangrene; M62.838 Other muscle spasm; J44.9 Chronic obstructive pulmonary disease, unspecified; T39.395A Adverse effect of other nonsteroidal anti-inflammatory drugs [NSAID], initial encounter; I10 Essential (primary) hypertension; F32.A Depression, unspecified; M19.90 Unspecified osteoarthritis, unspecified site; M47.9 Spondylosis, unspecified; G89.29 Other chronic pain; K29.70 Gastritis, unspecified, without bleeding; J45.909 Unspecified asthma, uncomplicated; Z87.891 Personal history of nicotine dependence; Z98.82 Breast implant status; Z28.21 Immunization not carried out because of patient refusal; Z28.311 Partially vaccinated for COVID-19
CPT/HCPCS: 43235; 80053; 83605; 83690; 83735; 84132; 85025; 85027; 85610; 85730; 86850; 86900; 86901; 86920; 93306; 99285